=== PATIENT | male | born 1955 | race Caucasian/White ===

== ENCOUNTER 2018-08-26 16:48 | Observation (INO) | payer OTHER, SELFPAY ==
[2018-08-26 16:53] VITALS: BP 133/87; PULSE 57; RESP 16; TEMP 36.6; O2SAT 99; BMI 25.5
--- NOTE | 2018-08-26 17:22 | DI.RAD.S_ITS ---
PROCEDURE: XR CHEST 1V INDICATIONS: arrythmia TECHNIQUE: One view of the chest was acquired. COMPARISON: [facility], CR, XR CHEST 1 VIEW, 10/31/2016, 23:37. FINDINGS: Surgical changes and devices: None. Lungs and pleura: Lungs are clear. No pleural effusions or pneumothorax. Mediastinum: Mediastinal contours appear normal. Heart size is normal. There appears to be aortic atherosclerosis. Bones and chest wall: No suspicious bony lesions. Degenerative changes of the shoulders and spine are not well characterized. Overlying soft tissues appear unremarkable. IMPRESSION: Stable chest. No acute cardiopulmonary process is evident. Dictated by: Alex Olson M.D. on 08/26/2018 at 16:52 Approved by: Alex Olson M.D. on 08/26/2018 at 16:52
[2018-08-26] MEDS: SODIUM CHLORIDE 0.9% 1,000 ML 150 ML IV (17:36)
[2018-08-26 17:37] LABS: Add Manual Diff / Slide Review NO; Basophils Absolute Auto 100 /uL (0-100); Basophils Percent Auto 0.8 % (0-2); Eosinophils Absolute Auto 400 /uL (0-450); Eosinophils Percent Auto 4.1 % (2-4); Hematocrit 52.3 % (41-53); Hemoglobin 17.8 g/dL (13.5-17.5); Lymphocytes Absolute Auto 2100 /uL (1100-4500); Lymphocytes Percent Auto 22.9 % (25-40); Mean Corpuscular Hemoglobin 32.9 PG (26-34); Mean Corpuscular Volume 96.9 fL (80-100); Monocytes Absolute Auto 1400 /uL (0-900); Monocytes Percent Auto 15.8 % (3-14); Neutrophils Absolute Auto 5100 /uL (1500-7000); Neutrophils Percent Auto 56.4 % (50-75); Platelet Count 280 X10^3/uL (150-400); Red Cell Distribution Width 12.4 % (11.6-14.8); White Blood Cell Count 9.1 X10^3/uL (4.5-11.0)
[2018-08-26 17:51] LABS: BUN Creatinine Ratio 14.4 (6-22); Blood Urea Nitrogen 13 mg/dL (9-20); Calcium 9.9 mg/dL (8.4-10.2); Carbon Dioxide 26 mmol/L (22-32); Chloride 104 mmol/L (98-107); Creatine Kinase 56 U/L (55-170); Estimated Glomerular Filt Rate > 60.0 mL/min (>60); Glucose 96 mg/dL (80-110); HEMOLYSIS 25 (0-50); Magnesium 2.3 mg/dL (1.6-2.3); Potassium 4.3 mmol/L (3.4-5.1); Sodium 141 mmol/L (137-145)
[2018-08-26 18:03] LABS: Troponin I < 0.012 ng/mL (0.01-0.034)
[2018-08-26 18:07] VITALS: BP 126/87; PULSE 78; RESP 15; O2SAT 98
[2018-08-26 18:55] LABS: Thyroid Stimulating Hormone 3.79 uIU/mL (0.47-4.68)
--- NOTE | 2018-08-26 19:02 | PC.NURSE ---
pt had extended pause, monitor was alarming and read 0. approached pt in room pt reports she just had a really weird feeling, and became sweaty. pt appears pale and diaphoretic. pt transfered to trauma room 1 for closer monitoring and connected to defib pads.
[2018-08-26 19:12] VITALS: BP 144/94; PULSE 55; RESP 13; O2SAT 95
--- NOTE | 2018-08-26 19:56 | ED_ITS ---
HPI - Arrhythmia/Palpitations General Chief Complaint: Arrhythmia/Palpitations Stated Complaint: IRREGULAR HEARTRATE Time Seen by Provider: 08/26/18 18:00 Source: patient and family Mode of arrival: ambulatory Limitations: no limitations History of Present Illness HPI narrative: 62-year-old nonsmoker with history of paroxysmal AFib presents with his with a chief complaint of episodes of palpitations last night and heart rate over 110. His last episode of AFib with a few years ago. The patient went to sleep hoping that upon waking his symptoms would improve. His palpitations are gone but Afib remains. He denies CP, SOB, dizziness, weakness or lightheadedness. The patient thinks his symptoms started a day or 2 ago but he also had an episode of near syncope and lightheadedness 3 or 4 days ago. He has had no change in his medications and denies any significant alcohol, street drugs or caffeine intake. MD complaint: rapid heart beat, heart racing and palpitations Onset (ago): hour(s) Duration: intermittent Severity: moderate Context: occurred during rest Arrhythmia history: atrial fibrillation Related Data Home Medications Medication Instructions Recorded Confirmed Lactobacillus acidophilus 1 cap PO DAILY 08/26/18 08/26/18 [Acidophilus] allopurinol 100 mg tablet 100 mg PO DAILY 08/26/18 08/26/18 aspirin 81 mg PO DAILY 08/26/18 08/26/18 atenolol 25 mg tablet 75 mg PO DAILY tab 08/26/18 08/26/18 clonazepam 0.5 mg PO BID PRN 08/26/18 08/26/18 diltiazem ER 240 mg capsule,24 240 mg PO DAILY 08/26/18 08/26/18 hr,extended release lisinopril 40 mg PO DAILY 08/26/18 08/26/18 Allergies Allergy/AdvReac Type Severity Reaction Status Date / Time hydrochlorothiazide AdvReac Verified 08/26/18 16:52 Review of Systems Constitutional Denies chills, Denies fever(s), Denies lethargy and Denies weakness Eyes Denies change in vision, Denies eye discharge, Denies irritation and Denies loss of vision ENT Ears, Nose, Mouth, and Throat: Denies change in voice, Denies neck pain and Denies sore throat Cardiovascular Denies chest pain, Reports irregular heart rhythm, Reports lightheadedness, Reports palpitations, Denies dyspnea, Denies dyspnea on exertion and Denies orthopnea Respiratory Denies cough, Denies dyspnea, Denies dyspnea on exertion and Denies wheezing Gastrointestinal Gastrointestinal: Denies abdominal pain, Denies change in bowel habits, Denies diarrhea, Denies nausea and Denies vomiting Genitourinary Denies hematuria, Denies flank pain, Denies urinary incontinence and Denies urinary urgency Musculoskeletal Denies neck pain Integumentary/Breasts Denies pruritus, Denies erythema, Denies rash and Denies wounds Neurologic Denies confusion, Denies loss of vision and Denies weakness Psychiatric Denies anxiety, Denies confusion, Denies depression, Denies homicidal ideation and Denies suicidal ideation Endocrine Reports palpitations Hematologic/Lymphatic Denies easy bruising Allergic/Immunologic Denies wheezing PFSH Social History Smoking Status: Never smoker Social History household members: spouse Smoking Status: Never smoker Exam Narrative Exam Narrative: GENERAL: This is a well-nourished, well-developed patient, in mild distress. HEAD: Atraumatic. Normocephalic. No temporal or scalp tenderness. EYES: Pupils equal round and reactive. Extraocular motions intact. No scleral icterus. No injection or drainage. ENT: Nose without bleeding, purulent drainage or septal hematoma. Throat without erythema, tonsillar hypertrophy or exudate. Uvula midline. Airway patent. NECK: Trachea midline. No JVD or lymphadenopathy. Supple, nontender, no meningeal signs. CARDIOVASCULAR: irregular rhythm. without murmurs, gallops, or rubs. RESPIRATORY: Clear to auscultation. Breath sounds equal bilaterally. No wheezes, rales, or rhonchi. GASTROINTESTINAL: Abdomen soft, non-tender, nondistended. No hepato-splenomegaly, or palpable masses. No guarding. EXTREMITIES: No clubbing, cyanosis, or edema. No joint tenderness, effusion, or edema noted. BACK: Nontender without deformity or crepitance. No flank tenderness. NEURO: AOx3. SKIN: No rash or erythema. Initial Vital Signs Initial Vital Signs: Vital Signs Temperature 98 F 08/26/18 16:53 Pulse Rate 57 L 08/26/18 16:53 Respiratory Rate 16 08/26/18 16:53 Blood Pressure 133/87 08/26/18 16:53 Pulse Oximetry 99 03/28/19 16:53 Course Orders Ordered: ED Orders 08/26/18 17:22 XR chest 1V Stat 08/26/18 17:30 Basic Metabolic Panel Stat Complete Blood Count AUTO DIFF Stat Magnesium Stat Thyroid Stimulating Hormone Stat Troponin & CK Cardiac Panel Stat 08/26/18 21:58 Consult to Discharge Planning Routine 08/27/18 Basic Metabolic Panel Routine Complete Blood Count AUTO DIFF Routine Troponin I Routine Acetaminophen (Tylenol) 650 mg PO Q6HR PRN PRN Reason: As Needed for Fever/Mild Pain Al Hydrox/Mg Hydrox/Simethicone (Maalox Plus) 30 ml PO Q6HR PRN PRN Reason: Dyspepsia Aspirin (Aspirin Ec) 81 mg PO DAILY ANA Clonazepam (Klonopin) 0.5 mg PO BID PRN PRN Reason: Anxiety Diltiazem HCl (Cardizem Cd) 120 mg PO DAILY ANA Lisinopril (Zestril) 40 mg PO DAILY ANA Ondansetron HCl (Zofran) 4 mg IV Q8HR PRN PRN Reason: Nausea And Vomiting Discontinued Medications Sodium Chloride (Normal Saline 0.9%) 1,000 mls @ 150 mls/hr IV CONT ANA Stop: 08/26/18 21:55 Last Admin: 08/26/18 17:36 Dose: 150 mls/hr Reevaluation(s) Reevaluation #1: Patient and I had lengthy conversation and discussed his signs, symptoms, low Rubén score and he was typed up for discharge when had a 5.4 sec pause followed by a conversion to normal sinus rhythm on the monitor. He was diaphoretic pale and lightheaded during this episode. Consultations Consultation #1: Initial call after lengthy pause was to cardiology whom states the patient needs to be kept in observation, on a monitor complete cessation of atenolol while maintaining the Cardizem. He states that if patient has recurrence of pauses that the patient should be transferred. Consultation #2: patient is a [facility] patient, therefore we [facility] whom agree with above plan. Stop atenolol, keep here, monitor on telemetry, but transfer for ongoing symptoms Consultation #3: call to hospitalist, happy to accept here Vital Signs - 8 hr 08/26/18 16:53 08/26/18 18:07 03/28/19 19:12 Temperature 98 F Pulse Rate 57 L 78 55 L Respiratory Rate 16 15 13 Blood Pressure 133/87 Blood Pressure [Left Arm] 126/87 144/94 H Pulse Oximetry 99 98 95 08/26/18 20:00 08/26/18 21:25 08/27/18 00:03 Temperature 98.5 F Pulse Rate 53 L 48 L Respiratory Rate 15 18 Blood Pressure 134/77 Blood Pressure [Left Arm] 148/96 H Pulse Oximetry 98 97 97 MDM - Arrhythmia/Palpitations Lab Data Result diagrams: 08/26/18 17:30 08/26/18 17:30 Lab Results 08/26/18 08/26/18 08/26/18 Range/Units 17:30 17:30 17:30 WBC 9.1 (4.5-11.0) X10^3/uL RBC 5.40 (4.5-5.9) X10^6/uL Hgb 17.8 H (13.5-17.5) g/dL Hct 52.3 (41-53) % MCV 96.9 (80-100) fL MCH 32.9 (26-34) PG MCHC 34.0 (30-36) % RDW 12.4 (11.6-14.8) % Plt Count 280 (150-400) X10^3/uL Neut % (Auto) 56.4 (50-75) % Lymph % (Auto) 22.9 L (25-40) % Louisa % (Auto) 15.8 H (3-14) % Eos % (Auto) 4.1 H (2-4) % Baso % (Auto) 0.8 (0-2) % Neut # (Auto) 5100 (1440-8987) /uL Lymph # (Auto) 2100 (8156-5804) /uL Louisa # (Auto) 1400 H (0-900) /uL Eos # (Auto) 400 (0-450) /uL Baso # (Auto) 100 (0-100) /uL Sodium 141 (137-145) mmol/L Potassium 4.3 (3.4-5.1) mmol/L Chloride 104 (98-107) mmol/L Carbon Dioxide 26 (22-32) mmol/L BUN 13 (9-20) mg/dL Creatinine 0.90 (0.66-1.25) mg/dL Estimated GFR > 60.0 (>60) mL/min BUN/Creatinine Ratio 14.4 (6-22) Glucose 96 (80-110) mg/dL Calcium 9.9 (8.4-10.2) mg/dL Magnesium 2.3 (1.6-2.3) mg/dL Total Creatine Kinase 56 (55-170) U/L CK-MB (CK-2) TNP CK-MB (CK-2) Rel Index TNP Troponin I < 0.012 (0.01-0.034) ng/mL TSH 3.79 (0.47-4.68) uIU/mL Discharge Plan Departure Patient Disposition: Admitted as Observation Clinical Impression: Atrial fibrillation, Bradycardia Discharge Date/Time: 08/26/18 20:35 Interventions: ED Discharge Assessment Last Done: 08/26/18 20:35 Instructions: DI for Atrial Fibrillation Additional Instructions: *You have been diagnosed with [ atrial fibrillation ] *What to do: *Take medications as directed: please take aspirin daily. Please resume your prior dosing of atenolol 50mg twice daily *Follow up with your primary care provider in 2-3 days, call for an appointment. Let them know you were seen in the Emergency Department and that we ask that you be seen in follow up *Return to ER if you should have any new, worsening or concerning symptoms Admit Date/Time: 08/26/18 20:12 Admit Provider: Ivan Blackmon
[2018-08-26 20:00] VITALS: BP 148/96; PULSE 53; RESP 15; O2SAT 98
[2018-08-26 21:04] VITALS: BMI 25.5
[2018-08-26 21:25] VITALS: BP 134/77; PULSE 48; RESP 18; TEMP 36.9; O2SAT 97
[2018-08-27] VITALS (9 sets, daily range): BP systolic 118–155; BP diastolic 61–90; PULSE 51–65; RESP 16–19; TEMP 36.2–36.7; O2SAT 97–100
--- NOTE | 2018-08-27 01:47 | PM.HP.1 ---
History of Present Illness Date Patient Seen: 08/26/18 Time Patient Seen: 20:30 Chief complaint: IRREGULAR HEARTRATE Narrative: This is a 62-year-old male patient with a history of paroxysmal atrial fibrillation, hypertension and low back pain who presents to the ER today with an irregular heart rate. The patient has a previous history of atrial fibrillation has undergone workup at [facility]. He states that his irregularity started last night and reports having a near syncopal episode prompting him to be seen by his primary care provider. At the time he had associated fatigue and was feeling ?uncomfortable?. He had no complaints of chest pain dizziness or shortness of breath. He was noted in documentation from the PCPs office that he had 12 lead EKG was done showing atrial fibrillation with a ventricular response of 47 as well as a pause greater than 3.6 seconds. The patient was subsequently sent to the ER evaluation. The patient additionally reports that he has had no arrhythmias for several years and had a reduction in his atenolol dose approximately 1 year ago and has had no other recent changes in his medication. He continues on atenolol and diltiazem. While in the ER the patient was on monitored with notation of a greater than 2nd pause with associated lightheadedness. His underlying rate in the ER is reported as 55 to 70s. 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 The patient is otherwise asymptomatic has had no recent complaints of fevers or chills, headaches or visual changes, nasal congestion or sore throat. Reports no chest pain, shortness of breath or cough. He denies abdominal pain, nausea or vomiting and has no diarrhea or constipation. Reports no urinary difficulties and has noted extremity weakness or ataxia. While in the ER the ER physician contacted Dr. [facility] as well as the [facility] pro doc reviewing the case who both indicated that they felt that there was no need to transfer the patient. Recommendation was to hold his atenolol and Cardizem. Patient History Medical History (Updated 08/27/18 @ 01:54 by ALBA Maki) Hypertension (Acute) Low back pain (Acute) Paroxysmal atrial fibrillation (Acute) Social History household members: spouse Smoking Status: Never smoker Family & Social History Family History (Updated 08/27/18 @ 01:58 by ALBA Maki) Father Atrial fibrillation Mother No problems noted. Social History: household members spouse Prior Living Arrangements House Safety & Behavioral: Feels Safe in Current Yes Environment Been Physically Hurt or No Threatened By a Person Suicidal Ideation Description None Suicide Plan Description No Plan Tobacco & Substance use: Smoking Status Never smoker alcohol intake frequency 0-2 drinks per day Substance Use Type does not use Comment: The patient is previously living in a single family home with his significant other whom he has been with for several years the patient is somewhat evasive about family history stating that his primary care provider has that information. Smoking: Patient states he has never smoked Alcohol: Patient describes sulfas light drinker mostly on social occasions Substance use: Patient does not use recreational pharmaceuticals, herbal or cannabis products. Advanced directives: Patient wishes to be a full code and designates his significant other Kia to be his surrogate decision maker Meds Home Medications Medication Instructions Recorded Confirmed Type Lactobacillus acidophilus 1 cap PO DAILY 08/26/18 08/26/18 History [Acidophilus] allopurinol 100 mg tablet 100 mg PO DAILY 08/26/18 08/26/18 History aspirin 81 mg PO DAILY 08/26/18 08/26/18 History atenolol 25 mg tablet 75 mg PO DAILY tab 08/26/18 08/26/18 History clonazepam 0.5 mg PO BID PRN 08/26/18 08/26/18 History diltiazem ER 240 mg capsule,24 240 mg PO DAILY 08/26/18 08/26/18 History hr,extended release lisinopril 40 mg PO DAILY 08/26/18 08/26/18 History Allergies Allergy/AdvReac Type Severity Reaction Status Date / Time hydrochlorothiazide AdvReac Verified 08/26/18 16:52 Review of Systems Review of Systems All systems reviewed & are unremarkable except as noted in HPI and below Exam Vital Signs (past 8 hours): - 08/26/18 18:07 08/26/18 19:12 08/26/18 20:00 Temperature Pulse Rate 78 55 L 53 L Respiratory Rate 15 13 15 Blood Pressure Blood Pressure [Left Arm] 126/87 144/94 H 148/96 H Pulse Oximetry 98 95 98 08/26/18 21:25 08/27/18 00:03 08/27/18 00:25 Temperature 98.5 F 97.6 F Pulse Rate 48 L 65 Respiratory Rate 18 16 Blood Pressure 134/77 118/61 Blood Pressure [Left Arm] Pulse Oximetry 97 97 97 Oxygen Delivery Method Room Air Narrative Exam Narrative: GENERAL APPEARANCE: well developed, well nourished, in no acute distress. HEAD: Normocephalic, atraumatic, no scalp lesions. EYES: pupils equal, round, reactive to light and accommodation, sclera non-icteric, extraocular movement intact without nystagmus . EARS: normal external structures, no ear pain NOSE: sinuses non tender to percussion, no rhinorrhea ORAL CAVITY: mucosa moist without lesions or exudate, palate normal, tongue in midline. THROAT: normal, no erythema, no exudate, pharynx normal, uvula midline. NECK/THYROID: neck supple, no jugular venous distention, no carotid bruit, no thyromegaly, trachea midline. LYMPH NODES: no cervical or supraclavicular lymphadenopathy. SKIN: warm and dry, no suspicious lesions, no rashes, good turgor. HEART: regular rate and rhythm, S1-S2 without murmur, rubs, gallops, brisk capillary refill, no edema LUNGS: clear to auscultation bilaterally, no coarseness crackles or wheezing, no cough present CHEST: Symmetrical movement, no accessory muscle use, no pain to AP and lateral compression. ABDOMEN: Soft, no distention, no epigastric or abdominal tenderness on palpation, no guarding or peritoneal signs, no organomegaly, no flank or suprapubic tenderness BACK: Normal curvature, nontender to palpation, no CVA tenderness on percussion EXTREMITIES: moves all extremities, strength is 5/5 and symmetrical, well perfused. NEUROLOGIC: AAO x4, no focal neurologic deficits, cranial nerves II-XII grossly intact , motor strength normal upper and lower extremities, sensory exam intact to light touch, hearing grossly normal to speech. PSYCH: alert, cognitive function intact, good eye contact, reserved to demeanor Objective Labs Result Diagrams: 08/26/18 17:30 08/26/18 17:30 Labs: Laboratory Results - last 24 hr 08/26/18 08/26/18 08/26/18 17:30 17:30 17:30 WBC 9.1 RBC 5.40 Hgb 17.8 H Hct 52.3 MCV 96.9 MCH 32.9 MCHC 34.0 RDW 12.4 Plt Count 280 Neut % (Auto) 56.4 Lymph % (Auto) 22.9 L Stafford % (Auto) 15.8 H Eos % (Auto) 4.1 H Baso % (Auto) 0.8 Neut # (Auto) 5100 Lymph # (Auto) 2100 [place] # (Auto) 1400 H Eos # (Auto) 400 Baso # (Auto) 100 Sodium 141 Potassium 4.3 Chloride 104 Carbon Dioxide 26 BUN 13 Creatinine 0.90 Estimated GFR > 60.0 BUN/Creatinine Ratio 14.4 Glucose 96 Calcium 9.9 Magnesium 2.3 Total Creatine Kinase 56 CK-MB (CK-2) TNP CK-MB (CK-2) Rel Index TNP Troponin I < 0.012 TSH 3.79 Assessment & Plan Assessment & Plan narrative: The patient is admitted to the hospital for cardiac monitoring in relation to atrial fibrillation, bradycardia and symptomatic pauses. 1. Paroxysmal atrial fibrillation, present on admission, chronic -patient with previous history of atrial fibrillation though been stable for years. -atrial fibrillation documented by EKG with bradycardia rate of 47 as well as pauses noted on the 12 lead EKG over 3 seconds and greater than 5 seconds on monitor in the ER. -all labs are unremarkable with normal electrolytes. Troponin is less than 0.012, will recheck in the morning -rhythm controlled with atenolol 25 mg and diltiazem 240 mg daily, patient states no recent medication changes and atenolol was decreased to 25 mg 1 year ago -Dr. Chin on-call cardiology consulted by Dr. Barnard who felt the patient did not need to be transferred and only monitor the patient while holding atenolol and Cardizem -the patient had converted back to sinus bradycardia, remains asymptomatic with no chest pain or shortness of breath -atenolol is held and Cardizem dose reduced to 120 mg to allow for treatment for atrial fibrillation 2. Essential hypertension, chronic -patient mildly hypertensive on arrival at 133/87 improved to 130 4/77 upon arrival to floor. -patient currently takes lisinopril 40 mg which be continued, atenolol is held and diltiazem is decreased to 120 mg extended release daily -will monitor blood pressure response holding and atenolol and decreasing diltiazem. Patient is admitted to the hospital to the severity symptoms and near syncope and potential for complications. Patient is admitted observation status expected length stay less than 2 midnights.
--- NOTE | 2018-08-27 02:06 | P.HP_ITS ---
History of Present Illness Date Patient Seen: 08/26/18 Time Patient Seen: 20:30 Chief complaint: IRREGULAR HEARTRATE Narrative: This is a 62-year-old male patient with a history of paroxysmal atrial fibrillation, hypertension and low back pain who presents to the ER today with an irregular heart rate. The patient has a previous history of atrial fibrillation has undergone workup at [facility]. He states that his irregularity started last night and reports having a near syncopal episode prompting him to be seen by his primary care provider. At the time he had associated fatigue and was feeling ?uncomfortable?. He had no complaints of chest pain dizziness or shortness of breath. He was noted in documentation from the PCPs office that he had 12 lead EKG was done showing atrial fibrillation with a ventricular response of 47 as well as a pause greater than 3.6 seconds. The patient was subsequently sent to the ER evaluation. The patient additionally reports that he has had no arrhythmias for several years and had a reduction in his atenolol dose approximately 1 year ago and has had no other recent changes in his medication. He continues on atenolol and diltiazem. Sara singh in the ER the patient was on monitored with notation of a greater than 2nd pause with associated lightheadedness. His underlying rate in the ER is reported as 55 to 70s. 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 The patient is otherwise asymptomatic has had no recent complaints of fevers or chills, headaches or visual changes, nasal congestion or sore throat. Reports no chest pain, shortness of breath or cough. He denies abdominal pain, nausea or vomiting and has no diarrhea or constipation. Reports no urinary difficulties and has noted extremity weakness or ataxia. While in the ER the ER physician contacted Dr. [facility] as well as the [place] [facility] doc reviewing the case who both indicated that they felt that there was no need to transfer the patient. Recommendation was to hold his atenolol and Cardizem. Patient History Medical History (Updated 08/27/18 @ 01:54 by ALBA Maki) Hypertension (Acute) Low back pain (Acute) Paroxysmal atrial fibrillation (Acute) Social History household members: spouse Smoking Status: Never smoker Family & Social History Family History (Updated 08/27/18 @ 01:58 by ALBA Maki) Father Atrial fibrillation Mother No problems noted. Social History: household members spouse Prior Living Arrangements House Safety & Behavioral: Feels Safe in Current Yes Environment Been Physically Hurt or No Threatened By a Person Suicidal Ideation Description None Suicide Plan Description No Plan Tobacco & Substance use: Smoking Status Never smoker alcohol intake frequency 0-2 drinks per day Substance Use Type does not use Comment: The patient is previously living in a single family home with his significant other whom he has been with for several years the patient is somewhat evasive about family history stating that his primary care provider has that information. Smoking: Patient states he has never smoked Alcohol: Patient describes sulfas light drinker mostly on social occasions Substance use: Patient does not use recreational pharmaceuticals, herbal or cannabis products. Advanced directives: Patient wishes to be a full code and designates his significant other Kia to be his surrogate decision maker Meds Home Medications Medication Instructions Recorded Confirmed Type Lactobacillus acidophilus 1 cap PO DAILY 08/26/18 08/26/18 History [Acidophilus] allopurinol 100 mg tablet 100 mg PO DAILY 08/26/18 08/26/18 History aspirin 81 mg PO DAILY 08/26/18 08/26/18 History atenolol 25 mg tablet 75 mg PO DAILY tab 08/26/18 08/26/18 History clonazepam 0.5 mg PO BID PRN 08/26/18 08/26/18 History diltiazem ER 240 mg capsule,24 240 mg PO DAILY 08/26/18 08/26/18 History hr,extended release lisinopril 40 mg PO DAILY 08/26/18 08/26/18 History Allergies Allergy/AdvReac Type Severity Reaction Status Date / Time hydrochlorothiazide AdvReac Verified 08/26/18 16:52 Review of Systems Review of Systems All systems reviewed & are unremarkable except as noted in HPI and below Exam Vital Signs (past 8 hours): - 08/26/18 18:07 08/26/18 19:12 08/26/18 20:00 Temperature Pulse Rate 78 55 L 53 L Respiratory Rate 15 13 15 Blood Pressure Blood Pressure [Left Arm] 126/87 144/94 H 148/96 H Pulse Oximetry 98 95 98 08/26/18 21:25 08/27/18 00:03 03/29/19 00:25 Temperature 98.5 F 97.6 F Pulse Rate 48 L 65 Respiratory Rate 18 16 Blood Pressure 134/77 118/61 Blood Pressure [Left Arm] Pulse Oximetry 97 97 97 Oxygen Delivery Method Room Air Narrative Exam Narrative: GENERAL APPEARANCE: well developed, well nourished, in no acute distress. HEAD: Normocephalic, atraumatic, no scalp lesions. EYES: pupils equal, round, reactive to light and accommodation, sclera non- icteric, extraocular movement intact without nystagmus . EARS: normal external structures, no ear pain NOSE: sinuses non tender to percussion, no rhinorrhea ORAL CAVITY: mucosa moist without lesions or exudate, palate normal, tongue in midline. THROAT: normal, no erythema, no exudate, pharynx normal, uvula midline. NECK/THYROID: neck supple, no jugular venous distention, no carotid bruit, no thyromegaly, trachea midline. LYMPH NODES: no cervical or supraclavicular lymphadenopathy. SKIN: warm and dry, no suspicious lesions, no rashes, good turgor. HEART: regular rate and rhythm, S1-S2 without murmur, rubs, gallops, brisk capillary refill, no edema LUNGS: clear to auscultation bilaterally, no coarseness crackles or wheezing, no cough present CHEST: Symmetrical movement, no accessory muscle use, no pain to AP and lateral compression. ABDOMEN: Soft, no distention, no epigastric or abdominal tenderness on palpation, no guarding or peritoneal signs, no organomegaly, no flank or suprapubic tenderness BACK: Normal curvature, nontender to palpation, no CVA tenderness on percussion EXTREMITIES: moves all extremities, strength is 5/5 and symmetrical, well perfused. NEUROLOGIC: AAO x4, no focal neurologic deficits, cranial nerves II-XII grossly intact , motor strength normal upper and lower extremities, sensory exam intact to light touch, hearing grossly normal to speech. PSYCH: alert, cognitive function intact, good eye contact, reserved to demeanor Objective Labs Result Diagrams: 08/26/18 17:30 08/26/18 17:30 Labs: Laboratory Results - last 24 hr 08/26/18 08/26/18 08/26/18 17:30 17:30 17:30 WBC 9.1 RBC 5.40 Hgb 17.8 H Hct 52.3 MCV 96.9 MCH 32.9 MCHC 34.0 RDW 12.4 Plt Count 280 Neut % (Auto) 56.4 Lymph % (Auto) 22.9 L [place] % (Auto) 15.8 H Eos % (Auto) 4.1 H Baso % (Auto) 0.8 Neut # (Auto) 5100 Lymph # (Auto) 2100 [place] # (Auto) 1400 H Eos # (Auto) 400 Baso # (Auto) 100 Sodium 141 Potassium 4.3 Chloride 104 Carbon Dioxide 26 BUN 13 Creatinine 0.90 Estimated GFR > 60.0 BUN/Creatinine Ratio 14.4 Glucose 96 Calcium 9.9 Magnesium 2.3 Total Creatine Kinase 56 CK-MB (CK-2) TNP CK-MB (CK-2) Rel Index TNP Troponin I < 0.012 TSH 3.79 Assessment & Plan Assessment & Plan narrative: The patient is admitted to the hospital for cardiac monitoring in relation to atrial fibrillation, bradycardia and symptomatic paus es. 1. Paroxysmal atrial fibrillation, present on admission, chronic -patient with previous history of atrial fibrillation though been stable for years. -atrial fibrillation documented by EKG with bradycardia rate of 47 as well as pauses noted on the 12 lead EKG over 3 seconds and greater than 5 seconds on monitor in the ER. -all labs are unremarkable with normal electrolytes. Troponin is less than 0.012, will recheck in the morning -rhythm controlled with atenolol 25 mg and diltiazem 240 mg daily, patient states no recent medication changes and atenolol was decreased to 25 mg 1 year ago -Dr. Chin on-call cardiology consulted by Dr. Barnard who felt the patient did not need to be transferred and only monitor the patient while holding atenolol and Cardizem -the patient had converted back to sinus bradycardia, remains asymptomatic with no chest pain or shortness of breath -atenolol is held and Cardizem dose reduced to 120 mg to allow for treatment for atrial fibrillation 2. Essential hypertension, chronic -patient mildly hypertensive on arrival at 133/87 improved to 130 4/77 upon arrival to floor. -patient currently takes lisinopril 40 mg which be continued, atenolol is held and diltiazem is decreased to 120 mg extended release daily -will monitor blood pressure response holding and atenolol and decreasing diltiazem. Patient is admitted to the hospital to the severity symptoms and near syncope and potential for complications. Patient is admitted observation status expe cted length stay less than 2 midnights.
[2018-08-27 07:24] LABS: BUN Creatinine Ratio 18.9 (6-22); Blood Urea Nitrogen 17 mg/dL (9-20); Calcium 9.2 mg/dL (8.4-10.2); Carbon Dioxide 25 mmol/L (22-32); Chloride 100 mmol/L (98-107); Estimated Glomerular Filt Rate > 60.0 mL/min (>60); Glucose 139 mg/dL (80-110); HEMOLYSIS < 15 (0-50); Sodium 137 mmol/L (137-145)
[2018-08-27 07:35] LABS: Troponin I < 0.012 ng/mL (0.01-0.034)
[2018-08-27 07:40] LABS: Add Manual Diff / Slide Review NO; Basophils Absolute Auto 100 /uL (0-100); Basophils Percent Auto 0.8 % (0-2); Eosinophils Absolute Auto 400 /uL (0-450); Eosinophils Percent Auto 4.7 % (2-4); Hematocrit 45.1 % (41-53); Hemoglobin 15.3 g/dL (13.5-17.5); Lymphocytes Absolute Auto 2000 /uL (1100-4500); Mean Corpuscular HGB Conc 33.9 % (30-36); Mean Corpuscular Hemoglobin 32.9 PG (26-34); Mean Corpuscular Volume 97.2 fL (80-100); Monocytes Absolute Auto 1000 /uL (0-900); Monocytes Percent Auto 12.2 % (3-14); Neutrophils Absolute Auto 4700 /uL (1500-7000); Neutrophils Percent Auto 58.3 % (50-75); Platelet Count 237 X10^3/uL (150-400); Red Blood Cell Count 4.64 X10^6/uL (4.5-5.9); Red Cell Distribution Width 12.7 % (11.6-14.8); White Blood Cell Count 8.1 X10^3/uL (4.5-11.0)
[2018-08-27] MEDS: LISINOPRIL 20 MG TABLET 40 MG PO (09:00)
[2018-08-27] MEDS: ASPIRIN EC 81 MG TABLET PO (09:00)
[2018-08-27] MEDS: dilTIAZem CD 120 MG CAP PO (09:00)
--- NOTE | 2018-08-27 17:08 | PC.NURSE ---
Pt discharged around 1650, A&OX3, denied pain, nausea, or sob. IV and tele removed. discharge instruction provided. pt refused wheelchair for transfer.
--- NOTE | 2018-08-28 12:35 | CM.IDA ---
Addendum entered by DUSTIN Griffiths 08/28/18 14:27: Received fax from [place] requesting DC Summary be faxed. Reviewed chart and no DC Summary done by Dr Noyola, DC order was found. Placed call to [facility] w/e # and LM stating no DC Summary available, DC date 08.27.18 Original Note: Late Entry/ DCP Assessment Note: Reviewed chart Thursday, discussed pt in multi-disciplinary rounds. No DC concerns noted by staff. DC home Thursday, w/ S.O. , no barriers. DUSTIN Griffiths
== END 2018-08-27 16:58 | disposition home or self-care (01) ==
LOC: ED 19:56 → AC 20:14
PROVIDERS: Emergency Medicine; Admitting Provider Nurse Practitioner Adult Health; Emergency Provider Emergency Medicine; Visit Provider Nurse Practitioner Adult Health
DX: I48.0 Paroxysmal atrial fibrillation (principal); I49.9 Cardiac arrhythmia, unspecified; I10 Essential (primary) hypertension
CPT/HCPCS: 36415; 36591; 71045; 80048; 82550; 83735; 84443; 84484; 85025; 93005; 93041; 96360; 96361; 99283; 99284; G0378

== ENCOUNTER 2023-10-21 21:56 | Emergency (ER) | payer OTHER, MEDICARE, SELFPAY ==
[2023-10-21 22:07] VITALS: BP 170/108; PULSE 87; RESP 18; TEMP 36.5; O2SAT 99; BMI 25.9
[2023-10-21 22:10] VITALS: PULSE 82; RESP 14; O2SAT 98
--- NOTE | 2023-10-21 22:23 | ED.ARRPALP ---
HPI - Arrhythmia/Palpitations General Chief Complaint: Arrhythmia/Palpitations Stated Complaint: states A Fib Time Seen by Provider: 10/21/23 22:01 Source: patient Mode of arrival: Ambulatory History of Present Illness HPI narrative: 67-year-old male. Has a history of atrial fibrillation. Is on diltiazem. Not on anticoagulation. Does see a cinder snapper. Has not had a episode of AFib in several years. States that earlier today after waking up he started to feel like his heart was beating fast and skipping beats. Some lightheadedness. No shortness of breath. No chest pain but is having palpitations. He did take a dose of atenolol what she normally does not take. This is left over from an old prescription. He had no improvement of symptoms which is what brought him to the emergency department today. Has not been sick recently. No fevers. Is taking the rest of his medications as directed Related Data Home Medications Medication Instructions Recorded Confirmed Lactobacillus acidophilus 1 cap PO DAILY 08/26/18 08/26/18 (Acidophilus capsule) allopurinol 100 mg tablet 100 mg PO DAILY 08/26/18 08/26/18 aspirin 81 mg tablet,delayed 81 mg PO DAILY 08/26/18 08/26/18 release clonazepam 0.5 mg tablet 0.5 mg PO BID PRN Anxiety 08/26/18 08/26/18 lisinopril 40 mg tablet 40 mg PO DAILY 08/26/18 08/26/18 Previous Rx's Medication Instructions Recorded diltiazem HCl 120 mg 120 mg PO DAILY #30 caps 08/27/18 capsule,extended release 24 hr methocarbamol 500 mg tablet 500 mg PO QID PRN muscle spasm #10 12/15/18 tabs Allergies Allergy/AdvReac Type Severity Reaction Status Date / Time hydrochlorothiazide AdvReac Verified 08/26/18 16:52 Review of Systems Review of Systems ROS Unobtainable: All systems reviewed & are unremarkable except as noted in HPI and below Patient History Medical History Paroxysmal atrial fibrillation Hypertension Low back pain Family History (Updated 08/27/18 @ 01:58 by ALBA Maki) Father Atrial fibrillation Mother No problems noted. Social History household members: spouse Smoking Status: Never smoker Smoking Status: Never smoker alcohol intake frequency: 0-2 drinks per day Alcohol type: beer and wine Substance Use Type: does not use Exam Initial Vital Signs Initial Vital Signs: Vital Signs Temperature 97.7 F 10/21/23 22:07 Pulse Rate 87 10/21/23 22:07 Respiratory Rate 18 10/21/23 22:07 Blood Pressure 170/108 H 10/21/23 22:07 Pulse Oximetry 99 10/21/23 22:07 Oxygen Delivery Method Room Air 10/21/23 22:07 Const General: cooperative, comfortable and No ill appearing HENMT Head: normal to inspection and normocephalic Resp Effort & Inspection: normal respiratory effort Auscultation: clear to auscultation bilaterally Cardio Rate: regular rate Rhythm: abnormal rhythm GI Inspection: normal to inspection and non-distended Skin General: no rashes or lesions noted Neuro General: patient alert, patient awake and moves all extremities Extrem General: capillary refill normal Scores CHADS-VASc Congestive heart failure: no Hypertension: yes Age 75 years or older: no Diabetes mellitus: no Stroke, TIA, or TE: no Vascular disease: no Age 65 to 74 years: yes Sex category (female): Male CHADS-VASc Score: 2 Course Orders Ordered: ED Orders 10/21/23 22:02 EKG-12 Lead Stat 10/21/23 22:11 Complete Blood Count AUTO DIFF Stat Comprehensive Metabolic Panel Stat Lipase Stat Magnesium Stat Troponin I Stat 10/21/23 23:41 EKG-12 Lead Stat Discontinued Medications Diltiazem HCl (Diltiazem 5 Mg/Ml Sdv) 10 mg IV NOW ONE Stop: 10/21/23 22:26 Last Admin: 10/21/23 22:31 Dose: 10 mg Documented By: SINGH Vital Signs Vital signs: Vital Signs - 8 hr 10/21/23 22:07 10/21/23 22:10 10/21/23 22:30 Temperature 97.7 F Pulse Rate 87 82 Respiratory Rate 18 14 Blood Pressure 170/108 H 158/81 H Pulse Oximetry 99 98 Oxygen Delivery Method Room Air Room Air 10/21/23 22:30 10/21/23 22:31 10/21/23 23:00 Temperature Pulse Rate 83 81 Respiratory Rate 17 Blood Pressure 158/81 H 122/86 Pulse Oximetry 97 Oxygen Delivery Method Room Air 10/21/23 23:00 10/21/23 23:30 10/21/23 23:30 Temperature Pulse Rate 66 74 Respiratory Rate 13 23 Blood Pressure 117/75 Pulse Oximetry 96 97 Oxygen Delivery Method Room Air Room Air 10/22/23 00:00 10/22/23 00:00 Temperature Pulse Rate 51 L Respiratory Rate 16 Blood Pressure 126/90 Pulse Oximetry 95 Oxygen Delivery Method Room Air MDM - Arrhythmia/Palpitations Lab Data Attestation: I reviewed the patient's lab results. 10/21/23 22:11 10/21/23 22:11 Labs: Lab Results 10/21/23 Range/Units 22:11 WBC 9.5 (4.5-11.0) X10^3/uL RBC 5.22 (4.5-5.9) X10^6/uL Hgb 17.0 (13.5-17.5) g/dL Hct 49.5 (41-53) % MCV 94.7 (80-100) fL MCH 32.5 (26-34) PG MCHC 34.3 (30-36) % RDW 13.2 (11.6-14.8) % Plt Count 342 (150-400) X10^3/uL Neut % (Auto) 51.6 (50-75) % Lymph % (Auto) 27.4 (25-40) % [place] % (Auto) 14.9 H (3-14) % Eos % (Auto) 4.9 H (2-4) % Baso % (Auto) 1.2 (0-2) % Neut # (Auto) 4900 (7635-1701) /uL Lymph # (Auto) 2600 (6969-4947) /uL [place] # (Auto) 1400 H (0-900) /uL Eos # (Auto) 500 H (0-450) /uL Baso # (Auto) 100 (0-100) /uL Sodium 141 (137-145) mmol/L Potassium 4.1 (3.4-5.1) mmol/L Chloride 107 (98-107) mmol/L Carbon Dioxide 25 (22-32) mmol/L BUN 19 (9-20) mg/dL Creatinine 1.02 (0.66-1.25) mg/dL Estimated GFR > 60 (>60) mL/min BUN/Creatinine Ratio 18.6 (6-22) Glucose 109 (80-110) mg/dL Calcium 9.1 (8.4-10.2) mg/dL Magnesium 2.5 H (1.6-2.3) mg/dL Total Bilirubin 0.6 (0.2-1.3) mg/dL AST 33 (17-59) IU/L ALT 34 (<50) IU/L Alkaline Phosphatase 122 (38-126) U/L Troponin I < 0.012 (0.01-0.034) ng/mL Total Protein 8.6 H (6.3-8.2) g/dL Albumin 4.8 (3.5-5.0) g/dL Globulin 3.8 (1.7-4.1) g/dL Albumin/Globulin Ratio 1.3 (1.0-2.8) Lipase 140 (23-300) U/L ECG Data Attestation: I personally reviewed and interpreted this ECG as follows: Interpretation: Presenting EKG Atrial fibrillation Ventricular rate 89 Normal axis Normal QRS No ST T wave changes Post cardioversion Sinus bradycardia Ventricular rate of 51 First-degree AV block [place] interval 2 on 0 milliseconds Normal QRS No ST T wave changes MDM Narrative Medical decision making narrative: Patient states the last time he had atrial fibrillation he was given medicine here in the emergency department and after a short period of time he converted on his own. You would like to avoid a cardioversion although he would be a candidate for this. Review of his medical record shows that he was given diltiazem. He was given a bolus of diltiazem here and after approximately 30 minutes the patient converted to a sinus bradycardia. He was asymptomatic from this. Ambulate around the emergency department without becoming lightheaded. He states his heart rate is normally in the 60s and this is when he stated that he took the extra dose of atenolol which is what he normally does not take. Patient does have a CHADS-VASc score of 2. I discuss this with him. We discussed how the recommendation would be to start him on anticoagulation however he would like to hold on this for now. He understands the risks of stroke. He would like to talk with his cinder snapper. We will hold on changing any of his other medications. He was given return precautions and follow-up instructions. He expressed understanding and agreement. Discharge Plan Departure Patient Disposition: Home Clinical Impression: Atrial fibrillation Instructions: DI for Atrial Fibrillation Activity Restrictions/Additional Instructions: Continue to take all of your medications as directed although I recommend that you not take the atenolol. Contact your cinder snapper for a follow-up. Return to the emergency department for new or worsening symptoms. Prescriptions: No Action allopurinol 100 mg tablet 100 mg PO DAILY methocarbamol 500 mg tablet 500 mg PO QID PRN (Reason: muscle spasm) Qty: 10 0RF clonazepam 0.5 mg Tablet 0.5 mg PO BID PRN (Reason: Anxiety) aspirin 81 mg Tablet,Delayed Release (Dr/Ec) 81 mg PO DAILY lisinopril 40 mg Tablet 40 mg PO DAILY Lactobacillus acidophilus [Acidophilus] Capsule 1 cap PO DAILY diltiazem HCl 120 mg Capsule,Extended Release 24hr 120 mg PO DAILY Qty: 30 0RF Stand Alone Forms: Patient Portal/API
[2023-10-21 22:30] VITALS: BP 158/81; PULSE 83; RESP 17; O2SAT 97
[2023-10-21 22:31] VITALS: BP 158/81; PULSE 81
[2023-10-21] MEDS: dilTIAZem 5 MG/ML SDV 10 MG IV (22:31)
[2023-10-21 22:47] LABS: Alanine Aminotransferase 34 IU/L (<50); Albumin 4.8 g/dL (3.5-5.0); Albumin Globulin Ratio 1.3 (1.0-2.8); Alkaline Phosphatase 122 U/L (38-126); Aspartate Aminotransferase 33 IU/L (17-59); BUN Creatinine Ratio 18.6 (6-22); Bilirubin Total 0.6 mg/dL (0.2-1.3); Blood Urea Nitrogen 19 mg/dL (9-20); Calcium 9.1 mg/dL (8.4-10.2); Carbon Dioxide 25 mmol/L (22-32); Chloride 107 mmol/L (98-107); Estimated Glomerular Filt Rate > 60 mL/min (>60); Globulin 3.8 g/dL (1.7-4.1); Glucose 109 mg/dL (80-110); HEMOLYSIS 18 (0-50); Lipase 140 U/L (23-300); Magnesium 2.5 mg/dL (1.6-2.3); Potassium 4.1 mmol/L (3.4-5.1); Sodium 141 mmol/L (137-145); Total Protein 8.6 g/dL (6.3-8.2)
[2023-10-21 22:58] LABS: Troponin I < 0.012 ng/mL (0.01-0.034)
[2023-10-21 23:00] VITALS: BP 122/86; PULSE 66; RESP 13; O2SAT 96
[2023-10-21 23:05] LABS: Add Manual Diff / Slide Review NO; Basophils Absolute Auto 100 /uL (0-100); Basophils Percent Auto 1.2 % (0-2); Eosinophils Absolute Auto 500 /uL (0-450); Eosinophils Percent Auto 4.9 % (2-4); Hematocrit 49.5 % (41-53); Lymphocytes Absolute Auto 2600 /uL (1100-4500); Lymphocytes Percent Auto 27.4 % (25-40); Mean Corpuscular HGB Conc 34.3 % (30-36); Mean Corpuscular Hemoglobin 32.5 PG (26-34); Mean Corpuscular Volume 94.7 fL (80-100); Monocytes Absolute Auto 1400 /uL (0-900); Monocytes Percent Auto 14.9 % (3-14); Neutrophils Absolute Auto 4900 /uL (1500-7000); Neutrophils Percent Auto 51.6 % (50-75); Platelet Count 342 X10^3/uL (150-400); Red Blood Cell Count 5.22 X10^6/uL (4.5-5.9); Red Cell Distribution Width 13.2 % (11.6-14.8); White Blood Cell Count 9.5 X10^3/uL (4.5-11.0)
[2023-10-21 23:30] VITALS: BP 117/75; PULSE 74; RESP 23; O2SAT 97
[2023-10-22] VITALS: BP 126/90; PULSE 51; RESP 16; O2SAT 95
--- NOTE | 2023-10-22 00:30 | PC.NURSE ---
Patient ambulated around the unit without difficulty. Patient denies chest pain, SOB, pain or palpitations. Provider Ferny aware.
== END 2023-10-22 00:54 | disposition home or self-care (01) ==
PROVIDERS: Emergency Provider Emergency Medicine
DX: I48.91 Unspecified atrial fibrillation (principal)
CPT/HCPCS: 36415; 80053; 83690; 83735; 84484; 85025; 93005; 96374; 99284

== ENCOUNTER 2024-03-04 14:50 | Emergency (ER) | payer MEDICARE, OTHER, SELFPAY ==
[2024-03-04] VITALS (70 sets, daily range): BP systolic 126–200; BP diastolic 73–112; PULSE 61–132; RESP 6–27; TEMP 36.6; O2SAT 93–100; BMI 26.1
--- NOTE | 2024-03-04 15:00 | DI.RAD.S_ITS ---
PROCEDURE: XR CHEST 1V INDICATIONS: chest pain TECHNIQUE: One view of the chest was acquired. COMPARISON: CR, XR CHEST 1V, 08/26/2018, 17:29. FINDINGS: Surgical changes and devices: None. Lungs and pleura: Lungs are clear considering reduced inspiratory volume. However, there is somewhat mild blurring of the lateral left diaphragmatic border the could represent atelectasis or mild/early pneumonia. No pleural effusions or pneumothorax. Mediastinum: Mediastinal contours appear normal. Heart size is normal. Bones and chest wall: No suspicious bony lesions. Overlying soft tissues appear unremarkable. IMPRESSION: The inspiratory volume is reduced, there is a concern for possible mild or early pneumonia versus atelectasis at the lateral left lung base obscuring clear visualization of diaphragm. PA and lateral deep inspiratory chest plain film imaging likely is warranted for more accurate assessment, versus noncontrast chest CT. Dictated by: Neymar Castle M.D. on 03/04/2024 at 15:22 Approved by: Neymar Castle M.D. on 03/04/2024 at 15:23
--- NOTE | 2024-03-04 15:07 | EKG_ITS ---
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
--- NOTE | 2024-03-04 15:25 | ED_ITS ---
HPI - Arrhythmia/Palpitations <Pauline C Kushaljojo, - Last Filed: 03/09/24 05:16> General Chief Complaint: Arrhythmia/Palpitations Stated Complaint: irregular heart beat Time Seen by Provider: 03/04/24 15:25 Source: patient Mode of arrival: Ambulatory History of Present Illness HPI narrative: 68-year-old male history of hypertension atrial fibrillation who is on diltiazem but not anticoagulated. Patient had an episode in September of 2023 and July of 2018 but has not had any episodes until last night. Patient states he woke up at about 3:00 a.m. this morning felt like his heart rate was quite fast in the 160s for about 20 minutes and then improved in the 120 range. Has been persistent since then. Has some lightheadedness for about 10 minutes but states no syncope. No chest pain or pressure, occasional shortness of breath, no nausea or vomiting, no diarrhea or constipation, no urinary symptoms. He is felt clammy today. States no fevers more cold cough congestion symptoms. He takes allopurinol, statin, lisinopril, diltiazem 120 mg and aspirin 81 mg daily. He has not on any other anticoagulation. Denies any prior surgeries. No prior cardioversions or cardiac catheterization. Has allergy to hydrochlorothiazide. Denies tobacco, occasional alcohol, no recreational drugs. Related Data Home Medications Medication Instructions Recorded Confirmed Lactobacillus acidophilus 1 cap PO DAILY 08/26/18 08/26/18 (Acidophilus capsule) allopurinol 100 mg tablet 100 mg PO DAILY 08/26/18 08/26/18 aspirin 81 mg tablet,delayed 81 mg PO DAILY 08/26/18 08/26/18 release clonazepam 0.5 mg tablet 0.5 mg PO BID PRN Anxiety 08/26/18 08/26/18 lisinopril 40 mg tablet 40 mg PO DAILY 08/26/18 08/26/18 Previous Rx's Medication Instructions Recorded diltiazem HCl 120 mg 120 mg PO DAILY #30 caps 08/27/18 capsule,extended release 24 hr methocarbamol 500 mg tablet 500 mg PO QID PRN muscle spasm #10 12/15/18 tabs apixaban 5 mg tablet (Eliquis) 5 mg PO BID #60 tabs 03/04/24 Allergies Allergy/AdvReac Type Severity Reaction Status Date / Time hydrochlorothiazide AdvReac Verified 03/04/24 14:56 Review of Systems <Pauline Welch DO - Last Filed: 03/09/24 05:16> Review of Systems ROS Unobtainable: All systems reviewed & are unremarkable except as noted in HPI and below Patient History <Pauline Welch DO - Last Filed: 03/09/24 05:16> Medical History Paroxysmal atrial fibrillation Hypertension Low back pain Family History Father Atrial fibrillation Mother No problems noted. Social History household members: spouse Smoking Status: Never smoker Smoking Status: Never smoker alcohol intake frequency: 0-2 drinks per day Alcohol type: beer and wine Substance Use Type: does not use Exam <Pauline Welch DO - Last Filed: 03/09/24 05:16> Narrative Exam Narrative: GENERAL: Alert and oriented x three, mild distress HEENT: Head normocephalic, atraumatic, EOMI, pupils reactive, face symmetric, moist mucous membranes NECK: Supple, full range of motion CARDIOVASCULAR: Irregularly irregular and tachycardic rate and rhythm without murmurs, rubs or gallops. No JVD. No edema bilateral lower extremities. RESPIRATORY: Breath sounds equal bilaterally, no wheezes rales or rhonchi. No tachypnea or accessory muscle use. ABDOMEN: Soft, nontender. Normoactive bowel sounds all 4 quadrants. No guarding or rebound, rigidity, no mass : No CVA tenderness EXTREMITIES: Normal range of motion, no clubbing or edema. Neurovascularly intact NEUROLOGICAL: Cranial nerves II through XII grossly intact. Moving all extremities SKIN: Warm, dry, no petechiae, no rashes or lesions. Initial Vital Signs Initial Vital Signs: Vital Signs Temperature 97.8 F 03/04/24 14:53 Pulse Rate 132 H 03/04/24 14:53 Respiratory Rate 12 03/04/24 14:53 Blood Pressure 144/89 H 03/04/24 14:53 Pulse Oximetry 98 03/04/24 14:53 Oxygen Delivery Method Room Air 03/04/24 14:53 <Easton Isaacs DO - Last Filed: 03/04/24 21:40> Initial Vital Signs Initial Vital Signs: Vital Signs Temperature 97.8 F 03/04/24 14:53 Pulse Rate 132 H 03/04/24 14:53 Respiratory Rate 12 03/04/24 14:53 Blood Pressure 144/89 H 03/04/24 14:53 Pulse Oximetry 98 03/04/24 14:53 Oxygen Delivery Method Room Air 03/04/24 14:53 Procedures <Easton Isaacs DO - Last Filed: 03/04/24 21:40> Cardioversion Consent Signed: Yes Indication: Atrial flutter Stability: Stable Number of attempts (shocks): 1 Joules used: 200 Cardiac rhythm post-cardioversion: Sinus rhythm Procedural Sedation Consent signed: Yes Time out performed: Yes Indication: cardioversion ASA Class: III Mallampati Airway Classification: Class II Preparation: personnel monitor applied, pulse oximeter, capnometry used, supplemental O2 applied, suction/airway equipment at bedside and IV secured Fentanyl: IV Fentanyl dose (mcg): 12 IV Propofol dose (mg): 120 Intraservice time/total sedation time (min): 15 ED Sedation Level: Moderate (Concious) Patient Tolerated Procedure: Well Complications: none Course <Pauline Welch, DO - Last Filed: 03/09/24 05:16> Orders Ordered: Discontinued Medications Apixaban (Apixaban 5 Mg Tablet) 5 mg PO NOW ONE Stop: 03/04/24 21:18 Last Admin: 03/04/24 21:23 Dose: 5 mg Documented By: LAMONTE Aspirin (Aspirin 81 Mg Chew Tab) 324 mg PO NOW ONE Stop: 03/04/24 15:01 Last Admin: 03/04/24 15:42 Dose: 243 mg Documented By: LAMONTE Diltiazem HCl (Diltiazem 25 Mg/5 Ml Sdv) 10 mg IV NOW ONE Stop: 03/04/24 15:36 Last Admin: 03/04/24 15:43 Dose: 10 mg Documented By: LAMONTE Diltiazem HCl (Diltiazem Cd 120 Mg Cap) 120 mg PO NOW ONE Stop: 03/04/24 17:12 Last Admin: 03/04/24 17:46 Dose: 120 mg Documented By: LEONARD Fentanyl (Fentanyl 100 Mcg/2 Ml Inj) 12.5 mcg IV NOW ONE Stop: 03/04/24 19:30 Last Admin: 03/04/24 20:07 Dose: 12.5 mcg Documented By: LAMONTE Sodium Chloride (Normal Saline 0.9%) 1,000 mls @ 1,000 mls/hr IV BOLUS ONE Stop: 03/04/24 16:34 Last Infusion: 03/04/24 16:48 Dose: Infused Documented By: Admin: 03/04/24 15:42 Dose: 1,000 mls/hr Documented By: LAMONTE Amiodarone HCl/Dextrose (Nexterone) 150 mg in 100 mls @ 600 mls/hr IV NOW ONE; Protocol Stop: 03/04/24 19:37 Last Infusion: 03/04/24 20:04 Dose: Infused Documented By: Admin: 03/04/24 19:48 Dose: 600 mls/hr Documented By: LAMONTE Propofol (Propofol 200 Mg/20 Ml Vial) 100 mg IV NOW ONE Stop: 03/04/24 19:30 Last Admin: 03/04/24 20:07 Dose: 100 mg Documented By: LAMONTE Propofol (Propofol 200 Mg/20 Ml Vial) 20 mg IV NOW ONE Stop: 03/04/24 20:27 Last Admin: 03/04/24 20:36 Dose: 20 mg Documented By: LAMONTE Vital Signs Vital signs: Vital Signs - 8 hr 03/04/24 14:53 03/04/24 15:02 03/04/24 15:09 Temperature 97.8 F Pulse Rate 132 H 128 H Respiratory Rate 12 15 Blood Pressure 144/89 H 157/86 H Pulse Oximetry 98 97 Oxygen Delivery Method Room Air 03/04/24 15:09 03/04/24 15:30 03/04/24 15:30 Temperature Pulse Rate 127 H 128 H Respiratory Rate 17 19 Blood Pressure 145/112 H Pulse Oximetry 97 96 Oxygen Delivery Method 03/04/24 15:43 03/04/24 15:46 03/04/24 15:46 Temperature Pulse Rate 128 H 127 H Respiratory Rate 21 Blood Pressure 153/93 H 153/93 H Pulse Oximetry 95 Oxygen Delivery Method Room Air 03/04/24 15:55 03/04/24 16:00 03/04/24 16:05 Temperature Pulse Rate 121 H 66 Respiratory Rate 13 12 Blood Pressure 161/77 H Pulse Oximetry 94 96 Oxygen Delivery Method 03/04/24 16:10 03/04/24 16:15 03/04/24 16:20 Temperature Pulse Rate 90 65 66 Respiratory Rate 13 12 10 L Blood Pressure Pulse Oximetry 95 95 94 Oxygen Delivery Method 03/04/24 16:25 03/04/24 16:30 03/04/24 16:31 Temperature Pulse Rate 95 H 75 79 Respiratory Rate 12 7 L 6 L Blood Pressure Pulse Oximetry 94 93 95 Oxygen Delivery Method 03/04/24 16:31 03/04/24 16:35 03/04/24 16:40 Temperature Pulse Rate 66 68 Respiratory Rate 8 L 9 L Blood Pressure 146/73 H Pulse Oximetry 94 93 Oxygen Delivery Method 03/04/24 16:45 03/04/24 16:50 03/04/24 16:55 Temperature Pulse Rate 96 H 101 H 101 H Respiratory Rate 17 7 L 14 Blood Pressure Pulse Oximetry 93 95 95 Oxygen Delivery Method 03/04/24 17:00 03/04/24 17:00 03/04/24 17:05 Temperature Pulse Rate 67 67 Respiratory Rate 11 L 10 L Blood Pressure 153/85 H Pulse Oximetry 95 94 Oxygen Delivery Method 03/04/24 17:10 03/04/24 17:15 03/04/24 17:20 Temperature Pulse Rate 72 91 H 74 Respiratory Rate 10 L 15 11 L Blood Pressure Pulse Oximetry 94 96 95 Oxygen Delivery Method 03/04/24 17:25 03/04/24 17:30 03/04/24 17:30 Temperature Pulse Rate 74 85 Respiratory Rate 12 12 Blood Pressure 144/90 H Pulse Oximetry 96 97 Oxygen Delivery Method 03/04/24 17:35 03/04/24 17:40 03/04/24 17:45 Temperature Pulse Rate 70 68 71 Respiratory Rate 15 15 15 Blood Pressure Pulse Oximetry 97 97 95 Oxygen Delivery Method 03/04/24 17:50 03/04/24 17:55 03/04/24 18:00 Temperature Pulse Rate 99 H 66 66 Respiratory Rate 17 15 17 Blood Pressure Pulse Oximetry 96 96 96 Oxygen Delivery Method 03/04/24 18:00 03/04/24 18:05 03/04/24 18:10 Temperature Pulse Rate 66 66 Respiratory Rate 11 L 12 Blood Pressure 160/93 H Pulse Oximetry 97 95 Oxygen Delivery Method 03/04/24 18:15 03/04/24 18:20 03/04/24 18:25 Temperature Pulse Rate 67 71 66 Respiratory Rate 10 L 13 12 Blood Pressure Pulse Oximetry 97 97 95 Oxygen Delivery Method 03/04/24 18:30 03/04/24 18:30 03/04/24 18:35 Temperature Pulse Rate 67 66 Respiratory Rate 11 L 8 L Blood Pressure 168/95 H Pulse Oximetry 96 96 Oxygen Delivery Method Room Air 03/04/24 18:40 03/04/24 18:45 03/04/24 18:50 Temperature Pulse Rate 66 82 69 Respiratory Rate 17 15 13 Blood Pressure Pulse Oximetry 96 96 96 Oxygen Delivery Method 03/04/24 18:55 03/04/24 19:00 03/04/24 19:01 Temperature Pulse Rate 66 69 72 Respiratory Rate 16 15 11 L Blood Pressure Pulse Oximetry 96 97 96 Oxygen Delivery Method Room Air 03/04/24 19:11 03/04/24 19:12 03/04/24 19:12 Temperature Pulse Rate 61 93 H Respiratory Rate 27 H 16 Blood Pressure 180/101 H Pulse Oximetry 100 99 Oxygen Delivery Method 03/04/24 19:15 03/04/24 19:20 03/04/24 19:25 Temperature Pulse Rate 69 76 95 H Respiratory Rate 13 12 21 Blood Pressure Pulse Oximetry 98 96 99 Oxygen Delivery Method 03/04/24 19:30 03/04/24 19:31 03/04/24 19:31 Temperature Pulse Rate 73 93 H Respiratory Rate 14 14 Blood Pressure 173/95 H Pulse Oximetry 98 97 Oxygen Delivery Method 03/04/24 19:35 03/04/24 19:40 03/04/24 19:45 Temperature Pulse Rate 71 93 H 81 Respiratory Rate 11 L 16 14 Blood Pressure Pulse Oximetry 96 97 97 Oxygen Delivery Method 03/04/24 19:50 03/04/24 19:55 03/04/24 20:00 Temperature Pulse Rate 85 85 Respiratory Rate 13 13 Blood Pressure 167/94 H Pulse Oximetry 98 96 Oxygen Delivery Method 03/04/24 20:00 03/04/24 20:05 03/04/24 20:10 Temperature Pulse Rate 82 71 77 Respiratory Rate 16 17 19 Blood Pressure Pulse Oximetry 97 96 96 Oxygen Delivery Method 03/04/24 20:15 03/04/24 20:16 03/04/24 20:16 Temperature Pulse Rate 94 H 82 Respiratory Rate 19 13 Blood Pressure 189/101 H Pulse Oximetry 99 99 Oxygen Delivery Method 03/04/24 20:20 03/04/24 20:20 03/04/24 20:25 Temperature Pulse Rate 95 H 68 Respiratory Rate 24 21 Blood Pressure 200/93 H Pulse Oximetry 100 95 Oxygen Delivery Method 03/04/24 20:27 03/04/24 20:27 03/04/24 20:30 Temperature Pulse Rate 68 68 Respiratory Rate 22 19 Blood Pressure 126/73 Pulse Oximetry 97 98 Oxygen Delivery Method 03/04/24 20:30 03/04/24 20:35 03/04/24 20:35 Temperature Pulse Rate 69 Respiratory Rate 21 Blood Pressure 143/89 H 149/80 H Pulse Oximetry 94 Oxygen Delivery Method 03/04/24 20:40 03/04/24 21:00 03/04/24 21:00 Temperature Pulse Rate 68 61 Respiratory Rate 23 13 Blood Pressure 142/91 H Pulse Oximetry 96 95 Oxygen Delivery Method Room Air <Easton Isaacs DO - Last Filed: 03/04/24 21:40> Orders Ordered: Discontinued Medications Apixaban (Apixaban 5 Mg Tablet) 5 mg PO NOW ONE Stop: 03/04/24 21:18 Last Admin: 03/04/24 21:23 Dose: 5 mg Documented By: LAMONTE Aspirin (Aspirin 81 Mg Chew Tab) 324 mg PO NOW ONE Stop: 03/04/24 15:01 Last Admin: 03/04/24 15:42 Dose: 243 mg Documented By: LAMONTE Diltiazem HCl (Diltiazem 25 Mg/5 Ml Sdv) 10 mg IV NOW ONE Stop: 03/04/24 15:36 Last Admin: 03/04/24 15:43 Dose: 10 mg Documented By: LAMONTE Diltiazem HCl (Diltiazem Cd 120 Mg Cap) 120 mg PO NOW ONE Stop: 03/04/24 17:12 Last Admin: 03/04/24 17:46 Dose: 120 mg Documented By: LEONARD Fentanyl (Fentanyl 100 Mcg/2 Ml Inj) 12.5 mcg IV NOW ONE Stop: 03/04/24 19:30 Last Admin: 03/04/24 20:07 Dose: 12.5 mcg Documented By: LAMONTE Sodium Chloride (Normal Saline 0.9%) 1,000 mls @ 1,000 mls/hr IV BOLUS ONE Stop: 03/04/24 16:34 Last Infusion: 03/04/24 16:48 Dose: Infused Documented By: Admin: 03/04/24 15:42 Dose: 1,000 mls/hr Documented By: LAMONTE Amiodarone HCl/Dextrose (Nexterone) 150 mg in 100 mls @ 600 mls/hr IV NOW ONE; Protocol Stop: 03/04/24 19:37 Last Infusion: 03/04/24 20:04 Dose: Infused Documented By: Admin: 03/04/24 19:48 Dose: 600 mls/hr Documented By: LAMONTE Propofol (Propofol 200 Mg/20 Ml Vial) 100 mg IV NOW ONE Stop: 03/04/24 19:30 Last Admin: 03/04/24 20:07 Dose: 100 mg Documented By: LAMONTE Propofol (Propofol 200 Mg/20 Ml Vial) 20 mg IV NOW ONE Stop: 03/04/24 20:27 Last Admin: 03/04/24 20:36 Dose: 20 mg Documented By: LAMONTE Vital Signs Vital signs: Vital Signs - 8 hr 03/04/24 14:53 03/04/24 15:02 03/04/24 15:09 Temperature 97.8 F Pulse Rate 132 H 128 H Respiratory Rate 12 15 Blood Pressure 144/89 H 157/86 H Pulse Oximetry 98 97 Oxygen Delivery Method Room Air 03/04/24 15:09 03/04/24 15:30 03/04/24 15:30 Temperature Pulse Rate 127 H 128 H Respiratory Rate 17 19 Blood Pressure 145/112 H Pulse Oximetry 97 96 Oxygen Delivery Method 03/04/24 15:43 03/04/24 15:46 03/04/24 15:46 Temperature Pulse Rate 128 H 127 H Respiratory Rate 21 Blood Pressure 153/93 H 153/93 H Pulse Oximetry 95 Oxygen Delivery Method Room Air 03/04/24 15:55 03/04/24 16:00 03/04/24 16:05 Temperature Pulse Rate 121 H 66 Respiratory Rate 13 12 Blood Pressure 161/77 H Pulse Oximetry 94 96 Oxygen Delivery Method 03/04/24 16:10 03/04/24 16:15 03/04/24 16:20 Temperature Pulse Rate 90 65 66 Respiratory Rate 13 12 10 L Blood Pressure Pulse Oximetry 95 95 94 Oxygen Delivery Method 03/04/24 16:25 03/04/24 16:30 03/04/24 16:31 Temperature Pulse Rate 95 H 75 79 Respiratory Rate 12 7 L 6 L Blood Pressure Pulse Oximetry 94 93 95 Oxygen Delivery Method 03/04/24 16:31 03/04/24 16:35 03/04/24 16:40 Temperature Pulse Rate 66 68 Respiratory Rate 8 L 9 L Blood Pressure 146/73 H Pulse Oximetry 94 93 Oxygen Delivery Method 03/04/24 16:45 03/04/24 16:50 03/04/24 16:55 Temperature Pulse Rate 96 H 101 H 101 H Respiratory Rate 17 7 L 14 Blood Pressure Pulse Oximetry 93 95 95 Oxygen Delivery Method 03/04/24 17:00 03/04/24 17:00 03/04/24 17:05 Temperature Pulse Rate 67 67 Respiratory Rate 11 L 10 L Blood Pressure 153/85 H Pulse Oximetry 95 94 Oxygen Delivery Method 03/04/24 17:10 03/04/24 17:15 03/04/24 17:20 Temperature Pulse Rate 72 91 H 74 Respiratory Rate 10 L 15 11 L Blood Pressure Pulse Oximetry 94 96 95 Oxygen Delivery Method 03/04/24 17:25 03/04/24 17:30 03/04/24 17:30 Temperature Pulse Rate 74 85 Respiratory Rate 12 12 Blood Pressure 144/90 H Pulse Oximetry 96 97 Oxygen Delivery Method 03/04/24 17:35 03/04/24 17:40 03/04/24 17:45 Temperature Pulse Rate 70 68 71 Respiratory Rate 15 15 15 Blood Pressure Pulse Oximetry 97 97 95 Oxygen Delivery Method 03/04/24 17:50 03/04/24 17:55 03/04/24 18:00 Temperature Pulse Rate 99 H 66 66 Respiratory Rate 17 15 17 Blood Pressure Pulse Oximetry 96 96 96 Oxygen Delivery Method 03/04/24 18:00 03/04/24 18:05 03/04/24 18:10 Temperature Pulse Rate 66 66 Respiratory Rate 11 L 12 Blood Pressure 160/93 H Pulse Oximetry 97 95 Oxygen Delivery Method 03/04/24 18:15 03/04/24 18:20 03/04/24 18:25 Temperature Pulse Rate 67 71 66 Respiratory Rate 10 L 13 12 Blood Pressure Pulse Oximetry 97 97 95 Oxygen Delivery Method 03/04/24 18:30 03/04/24 18:30 03/04/24 18:35 Temperature Pulse Rate 67 66 Respiratory Rate 11 L 8 L Blood Pressure 168/95 H Pulse Oximetry 96 96 Oxygen Delivery Method Room Air 03/04/24 18:40 03/04/24 18:45 03/04/24 18:50 Temperature Pulse Rate 66 82 69 Respiratory Rate 17 15 13 Blood Pressure Pulse Oximetry 96 96 96 Oxygen Delivery Method 03/04/24 18:55 03/04/24 19:00 03/04/24 19:01 Temperature Pulse Rate 66 69 72 Respiratory Rate 16 15 11 L Blood Pressure Pulse Oximetry 96 97 96 Oxygen Delivery Method Room Air 03/04/24 19:11 03/04/24 19:12 03/04/24 19:12 Temperature Pulse Rate 61 93 H Respiratory Rate 27 H 16 Blood Pressure 180/101 H Pulse Oximetry 100 99 Oxygen Delivery Method 03/04/24 19:15 03/04/24 19:20 03/04/24 19:25 Temperature Pulse Rate 69 76 95 H Respiratory Rate 13 12 21 Blood Pressure Pulse Oximetry 98 96 99 Oxygen Delivery Method 03/04/24 19:30 03/04/24 19:31 03/04/24 19:31 Temperature Pulse Rate 73 93 H Respiratory Rate 14 14 Blood Pressure 173/95 H Pulse Oximetry 98 97 Oxygen Delivery Method 03/04/24 19:35 03/04/24 19:40 03/04/24 19:45 Temperature Pulse Rate 71 93 H 81 Respiratory Rate 11 L 16 14 Blood Pressure Pulse Oximetry 96 97 97 Oxygen Delivery Method 03/04/24 19:50 03/04/24 19:55 03/04/24 20:00 Temperature Pulse Rate 85 85 Respiratory Rate 13 13 Blood Pressure 167/94 H Pulse Oximetry 98 96 Oxygen Delivery Method 03/04/24 20:00 03/04/24 20:05 03/04/24 20:10 Temperature Pulse Rate 82 71 77 Respiratory Rate 16 17 19 Blood Pressure Pulse Oximetry 97 96 96 Oxygen Delivery Method 03/04/24 20:15 03/04/24 20:16 03/04/24 20:16 Temperature Pulse Rate 94 H 82 Respiratory Rate 19 13 Blood Pressure 189/101 H Pulse Oximetry 99 99 Oxygen Delivery Method 03/04/24 20:20 03/04/24 20:20 03/04/24 20:25 Temperature Pulse Rate 95 H 68 Respiratory Rate 24 21 Blood Pressure 200/93 H Pulse Oximetry 100 95 Oxygen Delivery Method 03/04/24 20:27 03/04/24 20:27 03/04/24 20:30 Temperature Pulse Rate 68 68 Respiratory Rate 22 19 Blood Pressure 126/73 Pulse Oximetry 97 98 Oxygen Delivery Method 03/04/24 20:30 03/04/24 20:35 03/04/24 20:35 Temperature Pulse Rate 69 Respiratory Rate 21 Blood Pressure 143/89 H 149/80 H Pulse Oximetry 94 Oxygen Delivery Method 03/04/24 20:40 03/04/24 21:00 03/04/24 21:00 Temperature Pulse Rate 68 61 Respiratory Rate 23 13 Blood Pressure 142/91 H Pulse Oximetry 96 95 Oxygen Delivery Method Room Air MDM - Arrhythmia/Palpitations <Pauline Welch, - Last Filed: 03/09/24 05:16> Lab Data 03/04/24 15:18 03/04/24 15:18 Labs: Lab Results 03/04/24 Range/Units 15:18 WBC 9.4 (4.5-11.0) X10^3/uL RBC 5.31 (4.5-5.9) X10^6/uL Hgb 16.9 (13.5-17.5) g/dL Hct 49.8 (41-53) % MCV 93.7 (80-100) fL MCH 31.9 (26-34) PG MCHC 34.0 (30-36) % RDW 13.2 (11.6-14.8) % Plt Count 329 (150-400) X10^3/uL Neut % (Auto) 65.2 (50-75) % Lymph % (Auto) 20.2 L (25-40) % [place] % (Auto) 9.4 (3-14) % Eos % (Auto) 3.7 (2-4) % Baso % (Auto) 1.5 (0-2) % Neut # (Auto) 6100 (3850-9261) /uL Lymph # (Auto) 1900 (6482-4026) /uL [place] # (Auto) 900 (0-900) /uL Eos # (Auto) 400 (0-450) /uL Baso # (Auto) 100 (0-100) /uL PT 11.0 (9.4-12.5) SECONDS INR 1.0 (0.9-1.3) APTT 40 H (25.1-36.5) SECONDS Sodium 139 (137-145) mmol/L Potassium 3.8 (3.4-5.1) mmol/L Chloride 105 (98-107) mmol/L Carbon Dioxide 22 (22-32) mmol/L BUN 12 (9-20) mg/dL Creatinine 1.00 (0.66-1.25) mg/dL Estimated GFR > 60 (>60) mL/min BUN/Creatinine Ratio 12.0 (6-22) Glucose 161 H (80-110) mg/dL Calcium 9.4 (8.4-10.2) mg/dL Magnesium 2.0 (1.6-2.3) mg/dL Total Bilirubin 0.9 (0.2-1.3) mg/dL AST 31 (17-59) IU/L ALT 39 (<50) IU/L Alkaline Phosphatase 149 H (38-126) U/L Total Creatine Kinase 64 (55-170) U/L Troponin I < 0.012 (0.01-0.034) ng/mL NT-Pro-B Natriuret Pep 1300 H (<125) pg/mL Total Protein 8.8 H (6.3-8.2) g/dL Albumin 4.4 (3.5-5.0) g/dL Globulin 4.4 H (1.7-4.1) g/dL Albumin/Globulin Ratio 1.0 (1.0-2.8) Lipase 182 (23-300) U/L Imaging Data Chest x-ray: Radiologist's Impresson: Juan M Mccall??68??M??1955 ? Allergy/Adv: hydrochlorothiazide Close Chest X-Ray (Signed) Neymar Castle - 03/04/24 Telemetry Strips 08/26/18 Telemetry Strips 08/26/18 Chest X-Ray (Signed) Alex Olson - 08/26/18 Launch?[address] [address] XRay Report Signed Patient: Juan M Mccall MR#: [id number] : 1955 Acct:[id number] Age/Sex: 68 / M Date of Service: 03/04/24 Loc: ED Accession Number: [id number] Procedure: XR chest 1V Ordering Provider: Pauline Welch D.O. PROCEDURE: XR CHEST 1V INDICATIONS: chest pain TECHNIQUE: One view of the chest was acquired. COMPARISON: CR, XR CHEST 1V, 08/26/2018, 17:29. FINDINGS: Surgical changes and devices: None. Lungs and pleura: Lungs are clear considering reduced inspiratory volume. However, there is somewhat mild blurring of the lateral left diaphragmatic border the could represent atelectasis or mild/early pneumonia. No pleural effusions or pneumothorax. Mediastinum: Mediastinal contours appear normal. Heart size is normal. Bones and chest wall: No suspicious bony lesions. Overlying soft tissues appear unremarkable. IMPRESSION: The inspiratory volume is reduced, there is a concern for possible mild or early pneumonia versus atelectasis at the lateral left lung base obscuring clear visualization of diaphragm. PA and lateral deep inspiratory chest plain film imaging likely is warranted for more accurate assessment, versus noncontrast chest CT. Dictated by: Neymar Castle M.D. on 03/04/2024 at 15:22 Approved by: Neymar Castle M.D. on 03/04/2024 at 15:23 ECG Data Attestation: I personally reviewed and interpreted this ECG as follows: Prior ECG tracings: available for review Interpretation: Accelerated junctional rhythm rate of 126 QRS of 100 QTC of 532. Patient has prior EKGs which show atrial fibrillation, was more irregular irregular on those EKGs. MDM Narrative Medical decision making narrative: 68-year-old male with a history of atrial fibrillation presents with complaint of tachycardia symptoms similar to prior episodes. He is on aspirin daily but no other anticoagulation states episode started about 3:00 a.m., has had 2 prior episodes 06/20/2018 and 1 in September of 2023. Patient was cardioverted in the with diltiazem, he has not had a prior electrical cardioversion. Labs white count 9.4 hemoglobin of 16.9 platelets of 329. INR sodium is 139 potassium 3.8 chloride 105 CO2 is 22 BUN 12 creatinine of 1 glucose of 161 calcium 94 Mag is 2 bilirubin is 0.9 with normal AST ALT alk-phos of 149.. Lipase 182. Troponin is less than 0.012. BNP is 1300 no prior for comparison. EKG shows accelerated junctional rhythm rate of 126. Chest x-ray lungs-clear considering reduce inspiratory volume however somewhat mild blurring lateral left diaphragmatic border could represent atelectasis or mild/early pneumonia no pleural effusions or pneumothorax. Patient received fluids and 10 mg diltiazem. Patient's rate improved but continues to be irregular. Patient is reluctant for electrical cardioversion. He did take his oral diltiazem earlier today. Spoke with Dr. Sinclair with cardiology. Discussed patient appears to have some atrial flutter today versus atrial fibrillation he is currently rate controlled but still irregular. Reviewed labs, BNP slightly elevated but otherwise fairly appropriate labs, past history is reviewed. He has had 3 episodes of cardiac arrhythmias in the past. Patient is somewhat reluctant to have cardioversion but would likely be willing if offered. He recommended increasing patient's oral diltiazem to 240 mg daily, starting anticoagulation and patient can follow up outpatient. We can fax a face sheet to the office and they will see him for evaluation and possibly set up for outpatient cardioversion with [facility]. Discussed with patient if he has had any episodes between September and now unclear if he may have had some occasional. <Easton Isaacs DO - Last Filed: 03/04/24 21:40> Medical Records Attestation: I reviewed the patient's medical records. Lab Data Attestation: I reviewed the patient's lab results. Labs: Lab Results 03/04/24 Range/Units 15:18 WBC 9.4 (4.5-11.0) X10^3/uL RBC 5.31 (4.5-5.9) X10^6/uL Hgb 16.9 (13.5-17.5) g/dL Hct 49.8 (41-53) % MCV 93.7 (80-100) fL MCH 31.9 (26-34) PG MCHC 34.0 (30-36) % RDW 13.2 (11.6-14.8) % Plt Count 329 (150-400) X10^3/uL Neut % (Auto) 65.2 (50-75) % Lymph % (Auto) 20.2 L (25-40) % [place] % (Auto) 9.4 (3-14) % Eos % (Auto) 3.7 (2-4) % Baso % (Auto) 1.5 (0-2) % Neut # (Auto) 6100 (5481-6549) /uL Lymph # (Auto) 1900 (4074-7383) /uL [place] # (Auto) 900 (0-900) /uL Eos # (Auto) 400 (0-450) /uL Baso # (Auto) 100 (0-100) /uL PT 11.0 (9.4-12.5) SECONDS INR 1.0 (0.9-1.3) APTT 40 H (25.1-36.5) SECONDS Sodium 139 (137-145) mmol/L Potassium 3.8 (3.4-5.1) mmol/L Chloride 105 (98-107) mmol/L Carbon Dioxide 22 (22-32) mmol/L BUN 12 (9-20) mg/dL Creatinine 1.00 (0.66-1.25) mg/dL Estimated GFR > 60 (>60) mL/min BUN/Creatinine Ratio 12.0 (6-22) Glucose 161 H (80-110) mg/dL Calcium 9.4 (8.4-10.2) mg/dL Magnesium 2.0 (1.6-2.3) mg/dL Total Bilirubin 0.9 (0.2-1.3) mg/dL AST 31 (17-59) IU/L ALT 39 (<50) IU/L Alkaline Phosphatase 149 H (38-126) U/L Total Creatine Kinase 64 (55-170) U/L Troponin I < 0.012 (0.01-0.034) ng/mL NT-Pro-B Natriuret Pep 1300 H (<125) pg/mL Total Protein 8.8 H (6.3-8.2) g/dL Albumin 4.4 (3.5-5.0) g/dL Globulin 4.4 H (1.7-4.1) g/dL Albumin/Globulin Ratio 1.0 (1.0-2.8) Lipase 182 (23-300) U/L ECG Data Interpretation: Accelerated junctional rhythm rate of 126 QRS of 100 QTC of 532. Patient has prior EKGs which show atrial fibrillation, was more irregular irregular on those EKGs. Preprocedure EKG Atrial fibrillation Ventricular rate 84 Incomplete right bundle-branch block No ST T wave changes Post cardioversion EKG Sinus rhythm Ventricular rate 65 Incomplete right bundle-branch block No ST T wave changes MDM Narrative Medical decision making narrative: 68-year-old male with a history of atrial fibrillation presents with complaint of tachycardia symptoms similar to prior episodes. He is on aspirin daily but no other anticoagulation states episode started about 3:00 a.m., has had 2 prior episodes 06/20/2018 and 1 in September of 2023. Patient was cardioverted in the with diltiazem, he has not had a prior electrical cardioversion. Labs white count 9.4 hemoglobin of 16.9 platelets of 329. INR sodium is 139 potassium 3.8 chloride 105 CO2 is 22 BUN 12 creatinine of 1 glucose of 161 calcium 94 Mag is 2 bilirubin is 0.9 with normal AST ALT alk-phos of 149.. Lipase 182. Troponin is less than 0.012. BNP is 1300 no prior for comparison. EKG shows accelerated junctional rhythm rate of 126. Chest x-ray lungs-clear considering reduce inspiratory volume however somewhat mild blurring lateral left diaphragmatic border could represent atelectasis or mild/early pneumonia no pleural effusions or pneumothorax. Patient received fluids and 10 mg diltiazem. Patient's rate improved but continues to be irregular. Patient is reluctant for electrical cardioversion. He did take his oral diltiazem earlier today. Spoke with Dr. Sinclair with cardiology. Discussed patient appears to have some atrial flutter today versus atrial fibrillation he is currently rate controlled but still irregular. Reviewed labs, BNP slightly elevated but otherwise fairly appropriate labs, past history is reviewed. He has had 3 episodes of cardiac arrhythmias in the past. Patient is somewhat reluctant to have cardioversion but would likely be willing if offered. He recommended increasing patient's oral diltiazem to 240 mg daily, starting anticoagulation and patient can follow up outpatient. We can fax a face sheet to the office and they will see him for evaluation and possibly set up for outpatient cardioversion with DAWSON. Discussed with patient if he has had any episodes between September and now unclear if he may have had some occasional. Dr Isaacs: Received turned over. Review patient's history and physical exam and workup up to this point. Had a discussion with the patient. He was now rate controlled after IV diltiazem and oral diltiazem which he tolerated well. His heart rate is in the 70s to 80s but is obvious in atrial flutter. Had a discussion with him regarding options. We discussed the risks and benefits of cardioversion versus rate control. After this discussion the patient opted to be cardioverted. He was sedated and cardioverted with success. The plan will be to increase his diltiazem from 120 mg a day to 240 mg a day. Also recommended that he contact his roadside mechanic for follow-up. Discharge Plan Departure Patient Disposition: Home Clinical Impression: Atrial flutter Instructions: DI for Atrial Flutter Activity Restrictions/Additional Instructions: After discussion with the roadside mechanic they would like you to increase your diltiazem to 240 mg a day. We are also going to start you on a medicine called Eliquis/apixaban. Recommend that you go online and look up? Eliquis co-pay card?. After filling out this information and will generate number to take with you to the pharmacy which will provide a significant discount to this potentially expensive medication. Contact Cardiology of the number provided below for follow-up. Return to the emergency department for new symptoms. Prescriptions: New Eliquis 5 mg tablet 5 mg PO BID Qty: 60 0RF No Action allopurinol 100 mg tablet 100 mg PO DAILY methocarbamol 500 mg tablet 500 mg PO QID PRN (Reason: muscle spasm) Qty: 10 0RF clonazepam 0.5 mg Tablet 0.5 mg PO BID PRN (Reason: Anxiety) aspirin 81 mg Tablet,Delayed Release (Dr/Ec) 81 mg PO DAILY lisinopril 40 mg Tablet 40 mg PO DAILY Lactobacillus acidophilus [Acidophilus] Capsule 1 cap PO DAILY diltiazem HCl 120 mg Capsule,Extended Release 24hr 120 mg PO DAILY Qty: 30 0RF Referrals: Miscellaneous,Doctor, [Primary Care Provider] - Kayla Serrato MD [Physician] - Stand Alone Forms: Patient Portal/API
[2024-03-04 15:38] LABS: Add Manual Diff / Slide Review NO; Basophils Absolute Auto 100 /uL (0-100); Basophils Percent Auto 1.5 % (0-2); Eosinophils Absolute Auto 400 /uL (0-450); Eosinophils Percent Auto 3.7 % (2-4); Hematocrit 49.8 % (41-53); Hemoglobin 16.9 g/dL (13.5-17.5); Lymphocytes Absolute Auto 1900 /uL (1100-4500); Lymphocytes Percent Auto 20.2 % (25-40); Mean Corpuscular Hemoglobin 31.9 PG (26-34); Mean Corpuscular Volume 93.7 fL (80-100); Monocytes Absolute Auto 900 /uL (0-900); Monocytes Percent Auto 9.4 % (3-14); Neutrophils Absolute Auto 6100 /uL (1500-7000); Neutrophils Percent Auto 65.2 % (50-75); Platelet Count 329 X10^3/uL (150-400); Red Blood Cell Count 5.31 X10^6/uL (4.5-5.9); Red Cell Distribution Width 13.2 % (11.6-14.8); White Blood Cell Count 9.4 X10^3/uL (4.5-11.0)
[2024-03-04] MEDS: ASPIRIN 81 MG CHEW TAB 324 MG PO (15:42)
[2024-03-04] MEDS: SODIUM CHLORIDE 0.9% 1,000 ML 1000 ML IV (15:42)
[2024-03-04] MEDS: dilTIAZem 25 MG/5 ML SDV 10 MG IV (15:43)
[2024-03-04 15:47] LABS: PTT Partial Thromboplastin Tim 40 SECONDS (25.1-36.5)
[2024-03-04 15:50] LABS: Alanine Aminotransferase 39 IU/L (<50); Albumin 4.4 g/dL (3.5-5.0); Alkaline Phosphatase 149 U/L (38-126); Aspartate Aminotransferase 31 IU/L (17-59); Bilirubin Total 0.9 mg/dL (0.2-1.3); Blood Urea Nitrogen 12 mg/dL (9-20); Calcium 9.4 mg/dL (8.4-10.2); Carbon Dioxide 22 mmol/L (22-32); Chloride 105 mmol/L (98-107); Creatine Kinase 64 U/L (55-170); Estimated Glomerular Filt Rate > 60 mL/min (>60); Globulin 4.4 g/dL (1.7-4.1); Glucose 161 mg/dL (80-110); HEMOLYSIS < 15 (0-50); Lipase 182 U/L (23-300); Potassium 3.8 mmol/L (3.4-5.1); Sodium 139 mmol/L (137-145); Total Protein 8.8 g/dL (6.3-8.2)
[2024-03-04 16:01] LABS: NT-proBNP (BNP-Adult 18+) 1300 pg/mL (<125); Troponin I < 0.012 ng/mL (0.01-0.034)
--- NOTE | 2024-03-04 16:19 | PC.NURSE ---
1500-Patient brought back to the room and was very diaphoretic and HR in the 130's, this RN placed a cool rag on his forehead and notified the provider who came to bedside. Meds were ordered, see MAR
--- NOTE | 2024-03-04 16:47 | EKG_ITS ---
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
[2024-03-04] MEDS: dilTIAZem CD 120 MG CAP PO (17:46)
[2024-03-04] MEDS: AMIODARONE 150 MG/100 ML PIGGYBACK 600 MG IV (19:48)
--- NOTE | 2024-03-04 20:04 | EKG_ITS ---
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
[2024-03-04] MEDS: propofoL 200 MG/20 ML VIAL 100 MG IV (20:07)
[2024-03-04] MEDS: fentaNYL 100 MCG/2 ML INJ 12.5 MCG IV (20:07)
--- NOTE | 2024-03-04 20:28 | EKG_ITS ---
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
[2024-03-04] MEDS: propofoL 200 MG/20 ML VIAL 20 MG IV (20:36)
--- NOTE | 2024-03-04 20:36 | PC.NURSE ---
2019-Patient tolerated cardioversion well, RT and Provider at bedside, provider gave 120 of propofol. Patient maintained oxygen saturation and respirations remained even throughout procedure. Vital signs are currently stable and partner is at bedside
[2024-03-04] MEDS: APIXABAN 5 MG TABLET PO (21:23)
== END 2024-03-04 21:32 | disposition home or self-care (01) ==
PROVIDERS: Emergency Medicine; Emergency Provider Emergency Medicine
DX: I48.92 Unspecified atrial flutter (principal); I45.10 Unspecified right bundle-branch block; R00.0 Tachycardia, unspecified; R07.9 Chest pain, unspecified; I10 Essential (primary) hypertension; Z79.899 Other long term (current) drug therapy; Z79.82 Long term (current) use of aspirin
CPT/HCPCS: 36415; 71045; 80053; 82550; 83690; 83735; 83880; 84484; 85025; 85610; 85730; 92960; 93005; 93010; 96361; 96365; 96375; 99152; 99285; J0282; J2704; J3010

== ENCOUNTER 2024-12-10 15:05 | Emergency (ER) | payer MEDICARE, OTHER, SELFPAY ==
[2024-12-10] VITALS (14 sets, daily range): BP systolic 103–143; BP diastolic 57–79; PULSE 43–81; RESP 12–19; TEMP 36.3; O2SAT 94–97; BMI 25.9
--- NOTE | 2024-12-10 15:25 | DI.RAD.S_ITS ---
PROCEDURE: XR CHEST 1V INDICATIONS: Chest Pain TECHNIQUE: One view of the chest was acquired. COMPARISON: [facility], CR, XR CHEST 1V, 03/04/2024, 15:00. FINDINGS: Surgical changes and devices: None. Lungs and pleura: Lungs are clear. No pleural effusions or pneumothorax. Mediastinum: Mediastinal contours appear normal. Heart size is normal. Bones and chest wall: No suspicious bony lesions. Overlying soft tissues appear unremarkable. IMPRESSION: No acute cardiopulmonary abnormality is seen. Dictated by: Masood Coffman M.D. on 12/10/2024 at 17:01 Approved by: Masood Coffman M.D. on 12/10/2024 at 17:02
--- NOTE | 2024-12-10 15:39 | EKG_ITS ---
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
[2024-12-10 15:51] LABS: INR 1.3 (0.9-1.3); Prothrombin Time 15.0 SECONDS (9.4-12.5)
[2024-12-10 15:53] LABS: PTT Partial Thromboplastin Tim 38 SECONDS (25.1-36.5)
[2024-12-10 15:58] LABS: Alanine Aminotransferase 47 IU/L (<50); Albumin 4.7 g/dL (3.5-5.0); Albumin Globulin Ratio 1.3 (1.0-2.8); Alkaline Phosphatase 124 U/L (38-126); Blood Urea Nitrogen 16 mg/dL (9-20); Calcium 9.4 mg/dL (8.4-10.2); Carbon Dioxide 21 mmol/L (22-32); Chloride 103 mmol/L (98-107); Creatine Kinase 70 U/L (55-170); Estimated Glomerular Filt Rate > 60 mL/min (>60); Globulin 3.6 g/dL (1.7-4.1); Glucose 98 mg/dL (70-99); HEMOLYSIS < 15 (0-50); Magnesium 2.0 mg/dL (1.6-2.3); Potassium 4.3 mmol/L (3.4-5.1); Sodium 134 mmol/L (137-145); Total Protein 8.3 g/dL (6.3-8.2)
[2024-12-10 15:59] LABS: Add Manual Diff / Slide Review NO; Hematocrit 44.8 % (41-53); Hemoglobin 15.8 g/dL (13.5-17.5); Lymphocytes Absolute Auto 2200 /uL (1100-4500); Mean Corpuscular HGB Conc 35.2 % (30-36); Mean Corpuscular Hemoglobin 33.0 PG (26-34); Mean Corpuscular Volume 93.7 fL (80-100); Platelet Count 275 X10^3/uL (150-400)
[2024-12-10 16:06] LABS: NT-proBNP (BNP-Adult 18+) 1360 pg/mL (<125); Troponin I 0.012 ng/mL (0.01-0.034)
[2024-12-10] MEDS: SODIUM CHLORIDE 0.9% 1,000 ML 1000 ML IV (16:26)
[2024-12-10 16:49] LABS: Thyroid Stimulating Hormone 4.74 uIU/mL (0.47-4.68)
--- NOTE | 2024-12-10 18:05 | ED.ARRPALP ---
HPI - Arrhythmia/Palpitations General Chief Complaint: Arrhythmia/Palpitations Stated Complaint: irregular heart beat- hx of a-fib Time Seen by Provider: 12/10/24 15:44 Source: patient Mode of arrival: Ambulatory History of Present Illness HPI narrative: Pleasant 69-year-old man with a known history of paroxysmal AFib comes to the ER because of having worsening palpitations yesterday which then prompted him to take an extra 120 mg of diltiazem last night, and an extra 120 mg this morning along with his usual 120 mg. Subsequently he began to become lightheaded, however, his palpitations did improve. Currently, he is feeling lightheaded and continuing to have some intermittent palpitations. He denies any chest pain, syncope, diaphoresis, nausea, vomiting or any other concerns or complaints at this time. Related Data Home Medications ?Medication ?Instructions ?Recorded ?Confirmed Lactobacillus acidophilus 1 cap PO DAILY 08/26/18 08/26/18 (Acidophilus capsule) allopurinol 100 mg tablet 100 mg PO DAILY 08/26/18 08/26/18 aspirin 81 mg tablet,delayed 81 mg PO DAILY 08/26/18 08/26/18 release clonazepam 0.5 mg tablet 0.5 mg PO BID PRN Anxiety 08/26/18 08/26/18 lisinopril 40 mg tablet 40 mg PO DAILY 08/26/18 08/26/18 Previous Rx's ?Medication ?Instructions ?Recorded diltiazem HCl 120 mg 120 mg PO DAILY #30 caps 08/27/18 capsule,extended release 24 hr methocarbamol 500 mg tablet 500 mg PO QID PRN muscle spasm #10 12/15/18 tabs apixaban 5 mg tablet (Eliquis) 5 mg PO BID #60 tabs 03/04/24 Allergies Allergy/AdvReac Type Severity Reaction Status Date / Time hydrochlorothiazide AdvReac Syncope Verified 12/10/24 15:19 Patient History Medical History Paroxysmal atrial fibrillation Hypertension Low back pain Family History Father Atrial fibrillation Mother No problems noted. Social History household members: spouse Smoking Status: Never smoker alcohol intake frequency: 0-2 drinks per day Alcohol type: beer and wine Exam Initial Vital Signs Initial Vital Signs: Vital Signs Temperature 97.3 F L 12/10/24 15:19 Pulse Rate 55 L 12/10/24 15:19 Respiratory Rate 17 12/10/24 15:19 Blood Pressure 143/79 H 12/10/24 15:19 Pulse Oximetry 97 12/10/24 15:19 Oxygen Delivery Method Room Air 12/10/24 15:19 Const General: No acute distress, No in distress and No ill appearing [facility] Head: normocephalic and atraumatic Eyes General: Yes appearance normal, both eyes and all related structures Neck Neck: trachea midline Thyroid: thyroid normal Carotids: no bruits Resp Effort & Inspection: normal respiratory effort Cardio Rate: bradycardic Rhythm: abnormal rhythm Heart Sounds: S1 normal GI Palpation: soft and No tender Course Course Course Narrative: Patient seen and examined by myself when he was roomed. His EKG was done around the same time and showed a flutter with a rate of 54. His blood pressure did fluctuate somewhat during the initial phase of visit ER visit so he was started on IV fluids. It seems that the patient took too much diltiazem as he usually takes 120 mg daily but in this case took 360 mg in the past 12 hours. I discussed the case with the hide cleaner on-call for the patient's hide cleaner Dr. Claudia galindo who agreed that this was likely due to too much diltiazem and that the patient should be safe to go home and hold any diltiazem for tonight and then re-evaluate the heart rate before taking any tomorrow. I offered the patient admission for continued cardiac monitoring and he declined and stated he would rather go home. Therefore, I advised him to return to the hospital for any change or worsening in his condition especially chest pain, worsening lightheadedness, syncope. Patient was in agreement with this plan. Orders Ordered: ED Orders 12/10/24 15:23 Complete Blood Count AUTO DIFF Stat Comprehensive Metabolic Panel Stat D Dimer Stat Magnesium Stat NT-proBNP (BNP-Adult 18+) Stat PTT Partial Thromboplastin Cameron Stat Prothrombin Time INR Stat TSH [Thyroid Stimulating Hormone] Stat Troponin & CK Cardiac Panel Stat 12/10/24 15:25 XR chest 1V Stat EKG-12 Lead Stat Discontinued Medications Aspirin (Aspirin 81 Mg Chew Tab) 324 mg PO NOW ONE Stop: 12/10/24 15:26 Last Admin: 12/10/24 16:25 Dose: Not Given Documented By: BRENDA Sodium Chloride (Normal Saline 0.9%) 1,000 mls @ 1,000 mls/hr IV BOLUS ONE Stop: 12/10/24 17:22 Last Infusion: 12/10/24 17:21 Dose: Infused Documented By: Admin: 12/10/24 16:26 Dose: 1,000 mls/hr Documented By: BRENDA Vital Signs Vital signs: Vital Signs - 8 hr 12/10/24 15:19 12/10/24 15:40 Temperature 97.3 F L Pulse Rate 55 L 50 L Respiratory Rate 17 Blood Pressure 143/79 H 110/60 Pulse Oximetry 97 Oxygen Delivery Method Room Air MDM - Arrhythmia/Palpitations Differential Diagnosis Differential diagnosis: Likely palpitations, anxiety, sinus tachycardia, artial fibrillation, artial flutter, ventricular premature beats, supraventricular tachycardia and ventricular tachycardia Lab Data 12/10/24 15:23 12/10/24 15:23 Labs: Lab Results 12/10/24 Range/Units 15:23 WBC 9.9 (4.5-11.0) X10^3/uL RBC 4.78 (4.5-5.9) X10^6/uL Hgb 15.8 (13.5-17.5) g/dL Hct 44.8 (41-53) % MCV 93.7 (80-100) fL MCH 33.0 (26-34) PG MCHC 35.2 (30-36) % RDW 13.4 (11.6-14.8) % Plt Count 275 (150-400) X10^3/uL Neut % (Auto) 57.2 (50-75) % Lymph % (Auto) 22.3 L (25-40) % Davidson % (Auto) 13.4 (3-14) % Eos % (Auto) 4.5 H (2-4) % Baso % (Auto) 2.6 H (0-2) % Neut # (Auto) 5700 (8683-8639) /uL Lymph # (Auto) 2200 (0657-1210) /uL Davidson # (Auto) 1300 H (0-900) /uL Eos # (Auto) 400 (0-450) /uL Baso # (Auto) 300 H (0-100) /uL PT 15.0 H (9.4-12.5) SECONDS INR 1.3 (0.9-1.3) APTT 38 H (25.1-36.5) SECONDS D-Dimer < 215 (<500) ng/ml Sodium 134 L (137-145) mmol/L Potassium 4.3 (3.4-5.1) mmol/L Chloride 103 (98-107) mmol/L Carbon Dioxide 21 L (22-32) mmol/L BUN 16 (9-20) mg/dL Creatinine 0.90 (0.66-1.25) mg/dL Estimated GFR > 60 (>60) mL/min BUN/Creatinine Ratio 17.8 (6-22) Glucose 98 (70-99) mg/dL Calcium 9.4 (8.4-10.2) mg/dL Magnesium 2.0 (1.6-2.3) mg/dL Total Bilirubin 0.9 (0.2-1.3) mg/dL AST 37 (17-59) IU/L ALT 47 (<50) IU/L Alkaline Phosphatase 124 (38-126) U/L Total Creatine Kinase 70 (55-170) U/L Troponin I 0.012 (0.01-0.034) ng/mL NT-Pro-B Natriuret Pep 1360 H (<125) pg/mL Total Protein 8.3 H (6.3-8.2) g/dL Albumin 4.7 (3.5-5.0) g/dL Globulin 3.6 (1.7-4.1) g/dL Albumin/Globulin Ratio 1.3 (1.0-2.8) Lipase Cancelled TSH 4.74 H (0.47-4.68) uIU/mL ECG Data Interpretation: Aflutter rate 54 Discharge Plan Departure Clinical Impression: Atrial fibrillation Instructions: DI for Atrial Flutter Activity Restrictions/Additional Instructions: If there is any change or worsening in her condition such as chest pain, loss of consciousness, sudden sweatiness, nausea, vomiting, shortness of breath, lightheadedness or changing or worsening palpitations and please return to the ER right away for further evaluation. Otherwise, please keep a close eye on your heart rate and blood pressure at home. If your heart rate is less than 50 consistently at rest and you should return to the ER for further evaluation, similarly if it is greater than 100 consistently at rest she should also return to the ER for further evaluation. Do not take any further diltiazem tonight. As long as your heart rate is greater than 70 tomorrow morning you can go ahead and take her diltiazem 120 mg as scheduled. Do not change the dose of your diltiazem on your own any further without discussing with her hide cleaner. If you have any further concerns or complaints please return to the ER for further evaluation, otherwise please see your PCP and hide cleaner as soon as possible. Prescriptions: No Action allopurinol 100 mg tablet 100 mg PO DAILY methocarbamol 500 mg tablet 500 mg PO QID PRN (Reason: muscle spasm) Qty: 10 0RF clonazepam 0.5 mg Tablet 0.5 mg PO BID PRN (Reason: Anxiety) aspirin 81 mg Tablet,Delayed Release (Dr/Ec) 81 mg PO DAILY lisinopril 40 mg Tablet 40 mg PO DAILY Lactobacillus acidophilus [Acidophilus] Capsule 1 cap PO DAILY diltiazem HCl 120 mg Capsule,Extended Release 24hr 120 mg PO DAILY Qty: 30 0RF Eliquis 5 mg tablet 5 mg PO BID Qty: 60 0RF Referrals: Miscellaneous,Doctor, MD [Primary Care Provider, Medical]
--- NOTE | 2024-12-10 18:21 | PC.NURSE ---
Addendum entered by Tash Bell R.N. 12/10/24 18:23: No edema noted. Original Note: Pt reports he felt dizzy and was having palpitations that started last night. Pt increased dilt dose today. Pt reports dizziness.
== END 2024-12-10 18:24 | disposition home or self-care (01) ==
PROVIDERS: Emergency Provider Emergency Medicine
DX: I48.91 Unspecified atrial fibrillation (principal); Z79.01 Long term (current) use of anticoagulants
CPT/HCPCS: 36415; 71045; 80053; 82550; 83735; 83880; 84443; 84484; 85025; 85379; 85610; 85730; 93005; 93010; 96360; 99284

== ENCOUNTER 2025-03-31 02:26 | Emergency (ER) | payer MEDICARE, OTHER, SELFPAY ==
[2025-03-31 02:40] VITALS: BP 139/74; PULSE 79; RESP 16; TEMP 36.3; O2SAT 96; BMI 25.3
--- NOTE | 2025-03-31 03:21 | ED.DIZZY ---
HPI - Dizziness General Chief Complaint: Dizziness Stated Complaint: dizzy Time Seen by Provider: 03/31/25 03:10 History of Present Illness HPI Narrative: 69-year-old male with a history of status post ablation for atrial fibrillation on anticoagulation currently. Patient also has a ZIO patch heart monitor on currently. He has been having some dizziness and mental fogginess off and on for the past month. He feels like today was a worse episode. He denies any chest pain, shortness of breath, abdominal pain or any other symptoms. Related Data Home Medications ?Medication ?Instructions ?Recorded ?Confirmed Lactobacillus acidophilus 1 cap PO DAILY 08/26/18 08/26/18 (Acidophilus capsule) allopurinol 100 mg tablet 100 mg PO DAILY 08/26/18 08/26/18 aspirin 81 mg tablet,delayed 81 mg PO DAILY 08/26/18 08/26/18 release clonazepam 0.5 mg tablet 0.5 mg PO BID PRN Anxiety 08/26/18 08/26/18 lisinopril 40 mg tablet 40 mg PO DAILY 08/26/18 08/26/18 Previous Rx's ?Medication ?Instructions ?Recorded diltiazem HCl 120 mg 120 mg PO DAILY #30 caps 08/27/18 capsule,extended release 24 hr methocarbamol 500 mg tablet 500 mg PO QID PRN muscle spasm #10 12/15/18 tabs apixaban 5 mg tablet (Eliquis) 5 mg PO BID #60 tabs 03/04/24 Allergies Allergy/AdvReac Type Severity Reaction Status Date / Time hydrochlorothiazide AdvReac Syncope Verified 12/10/24 15:19 Review of Systems Review of Systems ROS Unobtainable: All systems reviewed & are unremarkable except as noted in HPI and below Patient History Medical History Paroxysmal atrial fibrillation Hypertension Low back pain Family History Father Atrial fibrillation Mother No problems noted. Social History household members: spouse Smoking Status: Never smoker alcohol intake frequency: 0-2 drinks per day Alcohol type: beer and wine Exam Narrative Exam Narrative: General: Patient appears to be in no acute distress, slightly confused Head: normocephalic, atraumatic, HEENT: Pupils equal round reactive, eyes tracking well, neck supple, no JVD Heart: regular rate and rhythm, no murmurs, rubs, or gallops heard Lungs: clear to auscultation, no adventitious sounds Abdomen: soft , nontender, nondistended, positive bowel sounds Neurological: no focal neurological signs, moving all extremities well, alert and oriented x3, Psych: good judgment ,good insight, mood is normal. Initial Vital Signs Initial Vital Signs: Vital Signs Temperature 97.4 F L 03/31/25 02:40 Pulse Rate 79 03/31/25 02:40 Respiratory Rate 16 03/31/25 02:40 Blood Pressure 139/74 03/31/25 02:40 Pulse Oximetry 96 03/31/25 02:40 Oxygen Delivery Method Room Air 03/31/25 02:40 Course Orders Ordered: ED Orders 03/31/25 03:13 Complete Blood Count AUTO DIFF Stat Comprehensive Metabolic Panel Stat Troponin I Stat 03/31/25 03:40 CT head/brain wo con Stat EKG-12 Lead Stat Discontinued Medications Sodium Chloride (Normal Saline 0.9%) 1,000 mls @ 1,000 mls/hr IV BOLUS ONE Stop: 03/31/25 05:42 Last Infusion: 03/31/25 06:08 Dose: Infused Documented By: Admin: 03/31/25 05:04 Dose: 1,000 mls/hr Documented By: KANDY Vital Signs Vital signs: Vital Signs - 8 hr 03/31/25 02:40 Temperature 97.4 F L Pulse Rate 79 Respiratory Rate 16 Blood Pressure 139/74 Pulse Oximetry 96 Oxygen Delivery Method Room Air MDM - Dizziness Lab Data 03/31/25 03:13 03/31/25 03:13 Labs: Lab Results 03/31/25 Range/Units 03:13 WBC 7.4 (4.5-11.0) X10^3/uL RBC 4.14 L (4.5-5.9) X10^6/uL Hgb 13.6 (13.5-17.5) g/dL Hct 38.7 L (41-53) % MCV 93.3 (80-100) fL MCH 32.8 (26-34) PG MCHC 35.1 (30-36) % RDW 13.4 (11.6-14.8) % Plt Count 266 (150-400) X10^3/uL Neut % (Auto) 56.3 (50-75) % Lymph % (Auto) 23.0 L (25-40) % Bell % (Auto) 13.9 (3-14) % Eos % (Auto) 6.0 H (2-4) % Baso % (Auto) 0.8 (0-2) % Neut # (Auto) 4200 (5831-2858) /uL Lymph # (Auto) 1700 (1948-5598) /uL Bell # (Auto) 1000 H (0-900) /uL Eos # (Auto) 400 (0-450) /uL Baso # (Auto) 100 (0-100) /uL Sodium 134 L (137-145) mmol/L Potassium 3.8 (3.4-5.1) mmol/L Chloride 104 (98-107) mmol/L Carbon Dioxide 22 (22-32) mmol/L BUN 19 (9-20) mg/dL Creatinine 0.87 (0.66-1.25) mg/dL Estimated GFR > 60 (>60) mL/min BUN/Creatinine Ratio 21.8 (6-22) Glucose 138 H (70-99) mg/dL Calcium 8.9 (8.4-10.2) mg/dL Total Bilirubin 0.4 (0.2-1.3) mg/dL AST 38 (17-59) IU/L ALT 34 (<50) IU/L Alkaline Phosphatase 103 (38-126) U/L Troponin I < 0.012 (0.01-0.034) ng/mL Total Protein 7.3 (6.3-8.2) g/dL Albumin 4.2 (3.5-5.0) g/dL Globulin 3.1 (1.7-4.1) g/dL Albumin/Globulin Ratio 1.4 (1.0-2.8) Urine Dip Bedside Urine Glucose Negative Bedside Urine Bilirubin - Negative Bedside Urine Ketone - Negative Urine Specific [place] 1.015 Bedside Urine Occult Blood - Negative Bedside Urine pH 6.0 Bedside Urine Protein - Negative Bedside Urine Urobilinogen - Negative Bedside Urine Nitrite - Negative Bedside Urine Leukocytes - Negative Esterase Imaging Data CT scan - head: Radiologist's Impression: No acute intracranial abnormality ECG Data Interpretation: EKG shows a normal sinus rhythm with incomplete right bundle-branch block at 72 beats per minute. Normal ID interval and no STT wave changes. Previous EKG showed atrial flutter with variable AV block. MDM Narrative Medical decision making narrative: 69-year-old male came in with some dizziness off and on for the past month. He was found in have some hyponatremia and given a normal saline bolus. Patient's symptoms slightly improved. Advised to continue to hydrate well. Follow up sooner if symptoms worsen. Discharge Plan Departure Patient Disposition: Home Clinical Impression: Acute hyponatremia Instructions: DI for Hyponatremia, DI for Dizziness-Nonvertigo Activity Restrictions/Additional Instructions: Reduce the intake of electrolyte free water. Take more electrolyte filled fluids or increase dietary salt intake. Follow up PCP and recheck sodium level in 1 week. Follow up sooner if symptoms worsen Prescriptions: No Action allopurinol 100 mg tablet 100 mg PO DAILY methocarbamol 500 mg tablet 500 mg PO QID PRN (Reason: muscle spasm) Qty: 10 0RF clonazepam 0.5 mg Tablet 0.5 mg PO BID PRN (Reason: Anxiety) aspirin 81 mg Tablet,Delayed Release (Dr/Ec) 81 mg PO DAILY lisinopril 40 mg Tablet 40 mg PO DAILY Lactobacillus acidophilus [Acidophilus] Capsule 1 cap PO DAILY diltiazem HCl 120 mg Capsule,Extended Release 24hr 120 mg PO DAILY Qty: 30 0RF Eliquis 5 mg tablet 5 mg PO BID Qty: 60 0RF Referrals: Miscellaneous,Doctor, MD [Primary Care Provider, Medical] Stand Alone Forms: Patient Portal/API
--- NOTE | 2025-03-31 03:40 | DI.CT.S_ITS ---
PROCEDURE: CT HEAD/BRAIN WO CON INDICATIONS: dizziness TECHNIQUE: Noncontrast 4.5 mm thick angled axial sections acquired from the foramen magnum to the vertex, with coronal and sagittal reformats. For radiation dose reduction, the following was used: automated exposure control, adjustment of mA and/or kV according to patient size. COMPARISON: None. FINDINGS: Image quality: Diagnostic. CSF spaces: Basal cisterns are patent. No extra-axial fluid collections. The ventricles are symmetric in size and shape. Brain: No intracranial bleeds or mass effect. There is cerebral volume loss, with resultant ventricular and sulcal prominence. There are very mild, age- appropriate periventricular and deep white matter chronic small vessel ischemic changes. There is intracranial internal carotid artery atherosclerosis. Skull and face: Calvarium and visualized facial bones appear intact, without suspicious lesions. Sinuses: Visualized sinuses and mastoids are clear. IMPRESSION: No evidence acute intracranial process. Comment: Final report is concordant with preliminary interpretation provided by [facility]. Dictated by: Rafa Krishnamurthy M.D. on 03/31/2025 at 7:07 Approved by: Rafa Krishnamurthy M.D. on 03/31/2025 at 7:08
[2025-03-31 03:55] LABS: Add Manual Diff / Slide Review NO; Hematocrit 38.7 % (41-53); Hemoglobin 13.6 g/dL (13.5-17.5); Lymphocytes Absolute Auto 1700 /uL (1100-4500); Mean Corpuscular HGB Conc 35.1 % (30-36); Mean Corpuscular Hemoglobin 32.8 PG (26-34); Mean Corpuscular Volume 93.3 fL (80-100); Platelet Count 266 X10^3/uL (150-400)
[2025-03-31 04:12] LABS: Alanine Aminotransferase 34 IU/L (<50); Albumin 4.2 g/dL (3.5-5.0); Albumin Globulin Ratio 1.4 (1.0-2.8); Alkaline Phosphatase 103 U/L (38-126); Blood Urea Nitrogen 19 mg/dL (9-20); Calcium 8.9 mg/dL (8.4-10.2); Carbon Dioxide 22 mmol/L (22-32); Chloride 104 mmol/L (98-107); Estimated Glomerular Filt Rate > 60 mL/min (>60); Globulin 3.1 g/dL (1.7-4.1); Glucose 138 mg/dL (70-99); HEMOLYSIS 27 (0-50); Potassium 3.8 mmol/L (3.4-5.1); Sodium 134 mmol/L (137-145); Total Protein 7.3 g/dL (6.3-8.2)
--- NOTE | 2025-03-31 04:15 | EKG_ITS ---
[address] [address] Test Date: 2025-03-31 Pat Name: Juan M Mccall Department: [facility] Room: Gender: Male [employer]: ARLENE CLAIRE : 1955 Requested By: Order Number: [id number] Reading MD: Tho Miguel MD Measurements Intervals [place] Rate: 72 P: 45 DC: 204 QRS: 14 QRSD: 108 T: 53 QT: 410 QTc: 448 Interpretive Statements Normal sinus rhythm Incomplete right bundle branch block Electronically Signed On 04-09-2025 9:01:11 PST by Tho Miguel MD
[2025-03-31 04:24] LABS: Troponin I < 0.012 ng/mL (0.01-0.034)
[2025-03-31] MEDS: SODIUM CHLORIDE 0.9% 1,000 ML 1000 ML IV (05:04)
--- NOTE | 2025-03-31 06:27 | PC.NURSE ---
Pt refused last set of vital sign prior to discharge
== END 2025-03-31 06:54 | disposition home or self-care (01) ==
PROVIDERS: Emergency Provider Family Medicine
DX: E87.1 Hypo-osmolality and hyponatremia (principal); R42 Dizziness and giddiness
CPT/HCPCS: 36415; 70450; 80053; 81003; 84484; 85025; 93005; 93010; 96360; 99284; J7030